=== PATIENT | female | born 1940 | race Caucasian/White ===

== ENCOUNTER 2020-01-09 08:03 | Outpatient (CLI) | payer MEDICARE, OTHER, SELFPAY | END 2020-01-09 08:04 | disposition home or self-care (01) | PROVIDERS: PCP Internal Medicine; Visit Provider Internal Medicine Pulmonary Disease | DX: J44.9 Chronic obstructive pulmonary disease, unspecified (principal); J45.991 Cough variant asthma | CPT/HCPCS: 94060; 94726; 94729; 95012 ==

== ENCOUNTER 2020-04-11 08:31 | Outpatient (CLI) | payer MEDICARE, OTHER, SELFPAY ==
--- NOTE | ~2020-04-11 | CT_ITS ---
EXAMINATION: CT soft tissue neck chest w DATE: 04/11/2020 10:15 INDICATION: Head and neck cancer. TECHNIQUE: Computed tomography (CT) of the neck and chest was performed with 75 mL Omnipaque-350 intr avenous contrast. Automated exposure control and iterative reconstruction technique were employed. Th e dose-length product was 375.05 mGy-cm. COMPARISON: Neck CT 07/28/2018 FINDINGS: NECK CT: There are likely changes of ocular lens replacement surgeries. There is thickening of the mu cosal space of the pharynx and larynx, consistent with changes of radiation therapy. At the right lat eral wall of the nasopharynx, there is a 1.9 x 1.3 cm mass that previously measured 3.0 x 2.5 cm. The re is a 12 x 10 mm lymph node in the right mid internal jugular chain at the posterior aspect of the inferior vena cava that was previously normal in size. There is plaque in the proximal internal carot id arteries with less than 50% stenosis relative to normal distal artery lumen diameters. There is se megha cervical spondylosis. There are implants in the mandible. CHEST CT: There is mild emphysema. There is scarring at the lung apices, right worse than left. There is a right posterior diaphragmatic hernia containing fat. A calcified left lung nodule is consistent with old granulomatous disease. There are a few scattered 2 mm pulmonary nodules. No pleural effusio n. The heart size is normal. There are coronary artery calcifications. No pericardial effusion. There is calcified atherosclerosis of the aorta and many of the other arteries. There is cortical thinning of the kidneys. There is a 1.5 cm cyst in right kidney. There is moderate right glenohumeral joint o steoarthritis with joint effusion. There is thoracolumbar dextroscoliosis and severe spondylosis. IMPRESSION: 1. 1.9 x 1.3 cm mass at the right lateral wall of the nasopharynx with interval improvement, consiste nt with primary malignancy. 2. Worsened mildly enlarged right mid internal jugular chain lymph node, consistent with metastatic d isease. 3. 2 mm pulmonary nodules, which may be granulomatous disease or less likely metastatic disease. Reviewed, dictated and finalized at location E. IMPRESSION: 1. 1.9 x 1.3 cm mass at the right lateral wall of the nasopharynx with interval improvement, consistent with primary malignancy. 2. Worsened mildly enlarged right mid internal jugular chain lymph node, consis tent with metastatic disease. 3. 2 mm pulmonary nodules, which may be granulomatous disease or less likely me tastatic disease.
[2020-04-11 08:44] LABS: Basophils Absolute Auto 0.03 K/mm3 (0.00-0.10); Basophils Percent Auto 0.4 % (0.0-1.0); Eosinophils Absolute Auto 0.19 K/mm3 (0.02-0.50); Eosinophils Percent Auto 2.7 % (1.0-6.0); Hemoglobin 11.2 g/dL (11.7-13.8); Immature Granulocyte Absolute 0.01 K/mm3 (0.00-0.00); Immature Granulocyte Percent A 0.1 % (0.0-0.0); Lymphocytes Percent Auto 24.1 % (18.0-42.0); Mean Corpuscular HGB Conc 33.9 g/dL (32.0-36.0); Mean Corpuscular Hemoglobin 29.8 pg (27.0-31.0); Mean Corpuscular Volume 87.8 fL (78.0-102.0); Mean Platelet Volume 8.6 fl (9.2-11.8); Monocytes Absolute Auto 0.67 K/mm3 (0.10-0.90); Monocytes Percent Auto 9.5 % (2.0-11.0); Neutrophils Absolute Auto 4.5 K/mm3 (1.7-7.2); Neutrophils Percent Auto 63.2 % (50.0-70.0); Platelet Count Result 253 K/mm3 (150-420); Red Blood Count 3.76 M/mm3 (4.20-5.40); Red Cell Distribution Width 13.2 % (11.6-14.4); White Blood Count 7.1 K/mm3 (4.8-10.8)
[2020-04-11 09:45] LABS: Alanine Aminotransferase 35 U/L (14-59); Albumin Level 3.4 g/dL (3.4-5.0); Alkaline Phosphatase 75 U/L (46-116); Anion Gap 12.8 mmol/L (7-16); Aspartate Amino Transferase 34 U/L (15-37); Bilirubin Direct 0.1 mg/dL (0-0.2); Bilirubin,Total 0.3 mg/dL (0.00-1.00); Blood Urea Nitrogen 17 mg/dL (7-18); Calcium 8.8 mg/dL (8.5-10.1); Carbon Dioxide 28 mmol/L (21-32); Chloride 92 mmol/L (98-108); Estimated Glomerular Filt Rate 52; Glucose 82 mg/dL (70-99); Osmolality Calculated 266 mOsm/kg (285-295); Potassium 4.8 mmol/L (3.5-5.1); Sodium 128 mmol/L (136-145); Total Protein 6.8 g/dL (6.4-8.2)
== END 2020-04-11 08:32 | disposition home or self-care (01) ==
LOC: CHSIMG 08:34
PROVIDERS: PCP Internal Medicine; Visit Provider Internal Medicine Hematology & Oncology
DX: C76.0 Malignant neoplasm of head, face and neck (principal)
CPT/HCPCS: 36415; 70491; 71260; 80048; 80076; 85025; Q9965

== ENCOUNTER 2020-04-25 17:38 | Outpatient (CLI) | payer MEDICARE, OTHER, SELFPAY ==
--- NOTE | ~2020-04-25 | XR_ITS ---
EXAMINATION: XR chest 2V EXAM DATE: 04/25/2020 18:02 INDICATION: Dyspnea and shortness of breath. Cough. TECHNIQUE: Frontal and lateral projections of the chest obtained and reviewed. Comparison is made to prior examination from 10/18/2019. FINDINGS: Severe chronic hyperinflation. Coronary artery stent. Right apical capping. No confluent c onsolidation, pneumothorax or pleural effusion suspected. Cardiomediastinal silhouette is normal. Mod erate thoracolumbar scoliosis. There is aortic arteriosclerosis. IMPRESSION: 1. Hyperinflation. 2. No acute cardiopulmonary findings. Reviewed, dictated and finalized at location A.
[2020-04-25 17:57] LABS: Basophils Absolute Auto 0.03 K/mm3 (0.00-0.10); Basophils Percent Auto 0.6 % (0.0-1.0); Eosinophils Absolute Auto 0.21 K/mm3 (0.02-0.50); Eosinophils Percent Auto 3.9 % (1.0-6.0); Hematocrit 31.1 % (35.0-42.0); Hemoglobin 10.7 g/dL (11.7-13.8); Immature Granulocyte Absolute 0.03 K/mm3 (0.00-0.00); Immature Granulocyte Percent A 0.6 % (0.0-0.0); Lymphocytes Absolute Auto 1.68 K/mm3 (1.10-4.50); Mean Corpuscular HGB Conc 34.4 g/dL (32.0-36.0); Mean Corpuscular Hemoglobin 30.1 pg (27.0-31.0); Mean Corpuscular Volume 87.4 fL (78.0-102.0); Mean Platelet Volume 8.7 fl (9.2-11.8); Monocytes Absolute Auto 0.67 K/mm3 (0.10-0.90); Monocytes Percent Auto 12.4 % (2.0-11.0); Neutrophils Absolute Auto 2.8 K/mm3 (1.7-7.2); Neutrophils Percent Auto 51.5 % (50.0-70.0); Platelet Count Result 262 K/mm3 (150-420); Red Blood Count 3.56 M/mm3 (4.20-5.40); Red Cell Distribution Width 13.2 % (11.6-14.4); White Blood Count 5.4 K/mm3 (4.8-10.8)
[2020-04-25 18:15] LABS: BNP 141 pg/mL (0-100)
[2020-04-25 18:16] LABS: D Dimer 0.59 mg/L (0.19-0.50)
[2020-04-25 18:24] LABS: Alanine Aminotransferase 29 U/L (14-59); Albumin Level 3.3 g/dL (3.4-5.0); Alkaline Phosphatase 71 U/L (46-116); Aspartate Amino Transferase 23 U/L (15-37); Bilirubin,Total 0.1 mg/dL (0.00-1.00); Blood Urea Nitrogen 30 mg/dL (7-18); Calcium 8.9 mg/dL (8.5-10.1); Carbon Dioxide 30 mmol/L (21-32); Chloride 93 mmol/L (98-108); Creatine Kinase 62 U/L (26-192); Estimated Glomerular Filt Rate 45; Glucose 98 mg/dL (70-99); Osmolality Calculated 274 mOsm/kg (285-295); Sodium 129 mmol/L (136-145); Total Protein 6.9 g/dL (6.4-8.2)
[2020-04-25 18:33] LABS: Troponin I < 0.02 ng/mL (0.00-0.056)
== END 2020-04-25 17:39 | disposition home or self-care (01) ==
LOC: CHSLAB 17:40
PROVIDERS: PCP Internal Medicine; Visit Provider Internal Medicine
DX: R06.00 Dyspnea, unspecified (principal)
CPT/HCPCS: 36415; 71046; 80053; 82550; 82553; 83880; 84484; 85025; 85380

== ENCOUNTER 2020-04-25 18:46 | Emergency (ER) | payer MEDICARE, OTHER, SELFPAY ==
--- NOTE | ~2020-04-25 | CT_ITS ---
EXAMINATION: CTA chest PE protocol EXAM DATE: 04/25/2020 19:26 INDICATION: Shortness of breath, cough, elevated d-dimer. History of throat cancer and COPD. TECHNIQUE: Spiral CTA of the chest (pulmonary arteries) was performed with 100 cc Omnipaque 350 intr avenous contrast injection. Images were acquired during the pulmonary arterial phase. Coronal maxi mum intensity projection 3D-reconstructions were created by the technologist on dedicated workstation . Axial, coronal and sagittal reformatted images were reviewed. The dose-length product (DLP) for t his examination was 142.50 mGy-cm. The exposure was tailored according to patient size (auto mA exp osure control), and iterative reconstruction (ASIR) was used as additional dose reduction technique. Comparison is made to prior examination from 04/11/2020. FINDINGS: Pulmonary arteries are well opacified and without intraluminal filling defects. No thora cic aortic dissection. Several scattered punctate granulomas. No suspicious pulmonary nodules. Ther e are no pleural or pericardial effusions. Tracheobronchial tree is patent. There is no mediastin al, hilar or axillary lymphadenopathy. There is no pneumothorax. Heart normal in size. There ar e likely coronary arterial stent or stents. Correlate with prior cardiac history. Upper abdomen is u nremarkable. There is thoracic spondylosis without osteoblastic or osteolytic lesions identified. IMPRESSION: 1. No pulmonary emboli or acute findings. 2. Emphysema and hyperinflation. 3. Bronchiectasis. Reviewed, dictated and finalized at location A.
[2020-04-25 19:00] VITALS: BP 152/73; PULSE 86; RESP 18; TEMP 36.4; O2SAT 99
--- NOTE | 2020-04-25 19:26 | ED.GENADULT ---
HPI - General Adult General Chief complaint: Recheck/Abnormal Lab/Rx Stated complaint: sent from [facility] for bad labs Source: patient History of Present Illness HPI narrative: Charisma is a 79F with a PMH of paroxysmal afib, CAD, HLD, HTN, osteoporosis, COPD and tonsil cancer that was referred to clinic by her PCP for an elevated D-dimer. She has had SOB since 04/12 when she was in the hospital getting her CT done. 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 No fevers, no chills, no N/V/D or chest pain. Related Data Home Medications Medication Instructions Recorded Confirmed aspirin 81 mg PO DAILY 10/18/19 04/25/20 atorvastatin 20 mg PO DAILY 10/18/19 04/25/20 clopidogrel [Plavix] 75 mg PO DAILY 10/18/19 04/25/20 lisinopril 10 mg PO DAILY 10/18/19 04/25/20 metoprolol tartrate 37.5 mg PO BID 10/18/19 04/25/20 montelukast 10 mg PO HS 10/18/19 04/25/20 multivit with min-folic acid See Rx Instructions .ROUTE .COMPLEX 10/18/19 04/25/20 [Adult One Daily Multivitamin] omeprazole 20 mg PO BID 10/18/19 04/25/20 tiotropium bromide [Spiriva with 1 cap INHALATION DAILY 10/18/19 04/25/20 HandiHaler] budesonide-formoterol [Symbicort] 2 puff INHALATION Q12H 04/25/20 04/25/20 Allergies Allergy/AdvReac Type Severity Reaction Status Date / Time Penicillins Allergy Hives Verified 10/18/19 19:35 Sulfa (Sulfonamide Allergy Hives Verified 10/18/19 19:35 Antibiotics) Review of Systems Constitutional: Constitutional: Denies chills and Denies fever(s) Eyes: Eyes: Reports no additional eye complaints ENT: Reports system reviewed and no additional complaints, except as documented Cardiovascular: Cardiovascular: Denies chest pain and Denies radiating jaw, neck or arm pain Respiratory: Respiratory: Reports as per HPI Gastrointestinal: Gastrointestinal: Reports no additional gastrointestinal complaints Genitourinary: Genitourinary: Reports no additional female genitourinary complaints Musculoskeletal: Musculoskeletal: Reports no additional musculoskeletal complaints Integumentary/Breasts: Skin/Breast: Reports system reviewed and no additional complaints, except as docu Neurologic: Reports system reviewed and no additional complaints, except as documented Psychiatric: Psychiatric: Reports no additional psychiatric complaints Endocrine: Endocrine: Reports no additional endocrine complaints Hematologic/Lymphatic: Hematologic/Lymphatic: Reports no additional hematologic/lymphatic complaints Allergic/Immunologic: Allergic/Immunologic: Reports no additional allergic/immunologic complaints PMFSH Past Medical History Medical History DVT (deep venous thrombosis) Surgical History Surgical History H/O bilateral oophorectomy History of appendectomy History of hysterectomy History of stress incontinence procedure using tension free vaginal tape Stented coronary artery Social History Social History Smoking status: Former smoker Alcohol intake: former Substance use: never Exam Const: General: no acute distress and alert Orientation/consciousness: patient oriented x3 Limitations: No altered mental status HENMT: Head: normal to inspection Eyes: Conjunctivae: conjunctivae normal Pupils: Equal, round and reactive pupils present Neck: Neck: normal visual inspection and no lymphadenopathy Resp: Effort & Inspection: normal respiratory effort Auscultation: clear to auscultation bilaterally and no wheezes Other: prolonged expiratory phase Cardio: Rhythm: regular rhythm GI: Other: bowel sounds present Course Course Emergency Course: Charisma was seen and evaluated. Orderd CTA as below. EXAMINATION: CTA chest PE protocol EXAM DATE: 04/25/2020 19:26 INDICATION: Shortness of breath, cough, elevated d-dimer. History
[2020-04-25] MEDS: methylPREDNISolone SOD SUCC 125 MG VIAL IV PUSH (19:48)
[2020-04-25 20:54] VITALS: BP 140/67; PULSE 80; RESP 18; TEMP 36.2; O2SAT 98
== END 2020-04-25 20:55 | disposition home or self-care (01) ==
PROVIDERS: Emergency Provider Family Medicine; PCP Internal Medicine
DX: J44.9 Chronic obstructive pulmonary disease, unspecified (principal); I25.10 Atherosclerotic heart disease of native coronary artery without angina pectoris; I10 Essential (primary) hypertension; M81.0 Age-related osteoporosis without current pathological fracture; I48.0 Paroxysmal atrial fibrillation; C09.9 Malignant neoplasm of tonsil, unspecified
CPT/HCPCS: 36415; 71046; 71275; 80053; 82550; 82553; 83880; 84484; 85025; 85380; 96365; 96375; 99283; 99284; J0456; J2930; Q9965

== ENCOUNTER 2020-05-10 15:36 | Outpatient (CLI) | payer MEDICARE, OTHER, SELFPAY ==
[2020-05-10 15:55] LABS: Base Excess ABG -1.4 mmol/L (0-2); HCO3 ABG 21.5 mmol/L (23-29); Oxygen Content ABG 16.2 %vol (16.0-22.0); Oxygen Saturation ABG 97.5 % (95-97); Oxyhemoglobin 97.1 % (94-100); PCO2 ABG 30.5 mmHg (35-45); PO2 ABG 92.2 mmHg (75-85); Total Hemoglobin 11.8 g/dL; pH ABG 7.47 (7.35-7.45)
--- NOTE | 2020-05-10 15:55 | ECG_ITS ---
Measurements Intervals [place] Rate: 75 P: 83 ME: 155 QRS: 75 QRSD: 90 T: 75 QT: 374 QTc: 418 Interpretive Statements SINUS RHYTHM BORDERLINE R WAVE PROGRESSION, ANTERIOR LEADS BASELINE ARTIFACT- I, II, AVR, AVL,A VF, V1-V3 BORDERLINE ECG Electronically Signed On 05-10-2020 17:28:34 CDT by Gregg Hernandez D.O.
[2020-05-10 16:11] LABS: Device ROOM AIR; Site Drawn RIGHT BRACHIAL
== END 2020-05-10 15:37 | disposition home or self-care (01) ==
LOC: CHSLAB 15:40
PROVIDERS: PCP Internal Medicine; Visit Provider Specialist
DX: R06.02 Shortness of breath (principal)
CPT/HCPCS: 36600; 82805; 93005

== ENCOUNTER 2020-05-17 12:15 | Outpatient (CLI) | payer MEDICARE, OTHER, SELFPAY | END 2020-05-17 12:16 | disposition home or self-care (01) | LOC: CHSIMG 12:16 | PROVIDERS: PCP Internal Medicine; Visit Provider Specialist | DX: R06.02 Shortness of breath (principal) | CPT/HCPCS: 93306 ==

== ENCOUNTER 2020-08-08 07:24 | Outpatient (CLI) | payer MEDICARE, OTHER, SELFPAY ==
--- NOTE | ~2020-08-08 | CT_ITS ---
EXAMINATION: CT soft tissue neck chest w EXAM DATE: 08/08/2020 08:25 INDICATION: Head and neck cancer, malignant tonsil cancer. TECHNIQUE: Spiral CT of the neck and chest was performed following intravenous injection of 75 mL Omn ipaque 350. Axial, coronal and sagittal images of the neck were reviewed. Axial, coronal and sagitt al images of the chest were reviewed. Coronal maximum intensity pixel images of chest reviewed. The dose-length product (DLP) for this examination was 405.45 mGy-cm. The exposure was tailored accordi ng to patient size (auto mA exposure control), and iterative reconstruction (ASIR) was used as additi onal dose reduction technique. There is no prior study for comparison. FINDINGS: NECK: Loss of normal fat planes surrounding the right carotid artery, thickening of the mucosal space of the pharynx and larynx, appearance most consistent with radiation related change, correlate with history. Again there is asymmetry of the nasopharyngeal mucosa with the right being more prominent th an the left. Could be treated cancer. Appearance does not appear significantly changed compared to pr ior study. Compared to prior study, some of the radiation related fibrosis has likely caused interval narrowing of the right internal jugular vein, without thrombosis. The thyroid gland is unremarkable. The subm andibular and parotid glands are symmetric. There is no cervical lymphadenopathy. There is advance d cervical spondylosis. CHEST: There is moderate emphysema and hyperinflation. Mild bronchiectasis. Biapical scarring is unch anged. There are no pleural or pericardial effusions. Tracheobronchial tree is patent. There is no mediastinal, hilar or axillary lymphadenopathy. There is no pneumothorax. Heart normal in size . Upper abdomen is unremarkable. There is thoracic spondylosis without osteoblastic or osteolytic lesions identified. IMPRESSION: 1. Stable right nasopharyngeal soft tissue prominence probably treated malignancy. 2. Findings consistent with radiation related change, with some interval progression of right international trade specialist al jugular vein narrowing from fibrosis. 3. Emphysema, hyperinflation, bronchiectasis. Reviewed, dictated and finalized at location A. IMPRESSION: 1. Stable right nasopharyngeal soft tissue prominence probably treated maligna ncy. 2. Findings consistent with radiation related change, with some interval progr ession of right internal jugular vein narrowing from fibrosis. 3. Emphysema, hyperinflation, bronchiectasis.
[2020-08-08 07:46] LABS: Basophils Absolute Auto 0.04 K/mm3 (0.00-0.10); Basophils Percent Auto 0.7 % (0.0-1.0); Eosinophils Absolute Auto 0.18 K/mm3 (0.02-0.50); Eosinophils Percent Auto 3.2 % (1.0-6.0); Hematocrit 33.7 % (35.0-42.0); Hemoglobin 11.2 g/dL (11.7-13.8); Immature Granulocyte Absolute 0.03 K/mm3 (0.00-0.00); Immature Granulocyte Percent A 0.5 % (0.0-0.0); Lymphocytes Absolute Auto 1.26 K/mm3 (1.10-4.50); Lymphocytes Percent Auto 22.2 % (18.0-42.0); Mean Corpuscular HGB Conc 33.2 g/dL (32.0-36.0); Mean Corpuscular Hemoglobin 30.2 pg (27.0-31.0); Mean Corpuscular Volume 90.8 fL (78.0-102.0); Monocytes Absolute Auto 0.31 K/mm3 (0.10-0.90); Monocytes Percent Auto 5.5 % (2.0-11.0); Neutrophils Absolute Auto 3.9 K/mm3 (1.7-7.2); Neutrophils Percent Auto 67.9 % (50.0-70.0); Platelet Count Result 265 K/mm3 (150-420); Red Blood Count 3.71 M/mm3 (4.20-5.40); Red Cell Distribution Width 12.7 % (11.6-14.4); White Blood Count 5.7 K/mm3 (4.8-10.8)
[2020-08-08 08:04] LABS: Estimated Glomerular Filt Rate 39
[2020-08-08 08:18] LABS: Alanine Aminotransferase 23 U/L (14-59); Albumin Level 3.7 g/dL (3.4-5.0); Alkaline Phosphatase 81 U/L (46-116); Anion Gap 7 mmol/L (8-16); Aspartate Amino Transferase 21 U/L (15-37); Bilirubin,Total 0.4 mg/dL (0.00-1.00); Blood Urea Nitrogen 18 mg/dL (7-18); Calcium 9.6 mg/dL (8.5-10.1); Carbon Dioxide 28 mmol/L (21-32); Chloride 94 mmol/L (98-108); Glucose 151 mg/dL (70-99); Osmolality Calculated 272 mOsm/kg (285-295); Potassium 4.2 mmol/L (3.5-5.1); Sodium 129 mmol/L (136-145); Total Protein 7.4 g/dL (6.4-8.2)
[2020-08-08 08:23] LABS: Thyroid Stimulating Hormone Reflex 1.66 u/IU/mL (0.36-3.74)
== END 2020-08-08 07:25 | disposition home or self-care (01) ==
LOC: CHSIMG 07:27
PROVIDERS: PCP Internal Medicine; Visit Provider Internal Medicine Hematology & Oncology
DX: C76.0 Malignant neoplasm of head, face and neck (principal); C09.9 Malignant neoplasm of tonsil, unspecified; R53.83 Other fatigue
CPT/HCPCS: 36415; 70491; 71260; 80053; 84443; 85025; Q9965

== ENCOUNTER 2021-02-14 10:24 | Outpatient (CLI) | payer MEDICARE, OTHER, SELFPAY ==
--- NOTE | ~2021-02-14 | XR_ITS ---
XR chest 2V 02/14/2021 11:10 Indication: Dyspnea. Shortness of breath with exertion. Chest pain. Procedure: 2 view chest Comparison: Comparison to multiple prior studies sequentially, with oldest reviewed study dated 01/17. Findings: Heart size normal. There is atherosclerosis of the aorta. No focal air space disease, pulmo nary edema, pleural effusion or suspected pneumothorax. The lungs are hyperinflated which is consiste nt with, but not diagnostic of chronic obstructive pulmonary disease. There are coronary artery stent s. There is chronic apical pleural thickening/scarring. There is scoliosis at the thoracolumbar junct ion. Impression: 1: No acute cardiopulmonary disease. Reviewed, dictated and finalized at location A. Impression: 1: No acute cardiopulmonary disease.
--- NOTE | ~2021-02-14 | CT_ITS ---
EXAMINATION: CTA chest PE protocol DATE: 02/14/2021 12:24 INDICATION: Shortness of breath. Dyspnea with exertion. Generalized chest pain. Positive d-dimer. TECHNIQUE: Computed tomography angiography (CTA) of the chest was performed with 100 mL Omnipaque-350 intravenous contrast timed to evaluate the pulmonary arteries. Coronal maximum intensity projection 3D-reconstructions were created by the technologist. Automated exposure control and iterative reconst ruction technique were employed. Exam dose: 145.58 mGy-cm total exam DLP. COMPARISON: 02/14/2021 PA and lateral chest 04/25/2020 CT pulmonary scan FINDINGS: There is diagnostic contrast enhancement of the pulmonary arteries and no evidence of pulmo nary embolism. No thoracic aortic aneurysm or dissection. There is extensive thoracic aortic and great vessel and coronary artery calcification. Heart size is within normal limits. No hilar or mediastinal mass lesion or lymphadenopathy. No pericardial or pleural effusion. Emphysematous changes are noted throughout the lungs. There is bilateral apical scarring, right great er than left. No pulmonary infiltrate or consolidation. No adrenal mass lesion is evident. Diffuse osteopenia. There are degenerative changes of the lower cervical spine and the thoracic and l umbar spine. IMPRESSION: No evidence of pulmonary embolism Emphysema Reviewed, dictated and finalized at Location A. Reviewed, dictated and finalized at location B.
[2021-02-14 10:37] LABS: Basophils Absolute Auto 0.03 K/mm3 (0.00-0.10); Basophils Percent Auto 0.4 % (0.0-1.0); Eosinophils Absolute Auto 0.09 K/mm3 (0.02-0.50); Eosinophils Percent Auto 1.3 % (1.0-6.0); Hematocrit 37.1 % (35.0-42.0); Hemoglobin 12.3 g/dL (11.7-13.8); Immature Granulocyte Absolute 0.02 K/mm3 (0.00-0.00); Immature Granulocyte Percent A 0.3 % (0.0-0.0); Lymphocytes Absolute Auto 0.98 K/mm3 (1.10-4.50); Lymphocytes Percent Auto 13.6 % (18.0-42.0); Mean Corpuscular HGB Conc 33.2 g/dL (32.0-36.0); Mean Corpuscular Hemoglobin 29.9 pg (27.0-31.0); Mean Platelet Volume 9.4 fl (9.2-11.8); Monocytes Absolute Auto 0.63 K/mm3 (0.10-0.90); Monocytes Percent Auto 8.8 % (2.0-11.0); Neutrophils Absolute Auto 5.4 K/mm3 (1.7-7.2); Neutrophils Percent Auto 75.6 % (50.0-70.0); Platelet Count Result 269 K/mm3 (150-420); Red Blood Count 4.12 M/mm3 (4.20-5.40); Red Cell Distribution Width 13.4 % (11.6-14.4); White Blood Count 7.2 K/mm3 (4.8-10.8)
--- NOTE | 2021-02-14 10:37 | ECG_ITS ---
Measurements Intervals [place] Rate: 83 P: 85 DC: 151 QRS: 73 QRSD: 81 T: 72 QT: 367 QTc: 433 Interpretive Statements SINUS RHYTHM FREQUENT VENTRICULAR PREMATURE COMPLEXES CANNOT RULE OUT SEPTAL INFARCT, AGE INDETERMINATE BASELINE ARTIFACT- I, II, III, AVR, AVL, AVF ABNORMAL ECG Electronically Signed On 02-14-2021 11:22:18 CDT by Gregg Hernandez D.O.
[2021-02-14 10:58] LABS: BNP 187 pg/mL (0-100)
[2021-02-14 11:13] LABS: Alanine Aminotransferase 19 U/L (14-59); Albumin Level 3.6 g/dL (3.4-5.0); Alkaline Phosphatase 72 U/L (46-116); Anion Gap 9 mmol/L (8-16); Aspartate Amino Transferase 23 U/L (15-37); Bilirubin,Total 0.5 mg/dL (0.00-1.00); Blood Urea Nitrogen 17 mg/dL (7-18); Calcium 9.5 mg/dL (8.5-10.1); Carbon Dioxide 28 mmol/L (21-32); Chloride 98 mmol/L (98-108); Creatine Kinase 56 U/L (26-192); Estimated Glomerular Filt Rate 38; Glucose 108 mg/dL (70-99); Osmolality Calculated 282 mOsm/kg (285-295); Potassium 3.6 mmol/L (3.5-5.1); Sodium 135 mmol/L (136-145); Total Protein 7.7 g/dL (6.4-8.2); Troponin I 12.1 ng/L (0.00-60.4)
== END 2021-02-14 10:25 | disposition home or self-care (01) ==
PROVIDERS: PCP Internal Medicine; Visit Provider Internal Medicine
DX: R06.00 Dyspnea, unspecified (principal); I25.10 Atherosclerotic heart disease of native coronary artery without angina pectoris; Z85.21 Personal history of malignant neoplasm of larynx; Z85.89 Personal history of malignant neoplasm of other organs and systems
CPT/HCPCS: 36415; 71046; 71275; 80053; 82550; 82553; 83880; 84484; 85025; 85380; 93005; Q9967

== ENCOUNTER 2021-06-10 09:12 | Outpatient (CLI) | payer MEDICARE, OTHER, SELFPAY ==
--- NOTE | ~2021-06-10 | CT_ITS ---
EXAMINATION: CT soft tissue neck w con EXAM DATE: 06/10/2021 10:25 INDICATION: Head and neck cancer. Swelling in neck found at doctor's ananda, tender to touch. TECHNIQUE: Spiral CT of the neck was performed following intravenous injection of 75 mL Omnipaque 350 . Axial, coronal and sagittal images were reviewed. The dose-length product (DLP) for this examinat ion was 138.75 mGy-cm. The exposure was tailored according to patient size (auto mA exposure control ), and iterative reconstruction (ASIR) was used as additional dose reduction technique. Comparison is made to prior examination from 08/08/2020. FINDINGS: Appearance to the nasopharyngeal and oropharyngeal mucosa, which appears asymmetrically thi ckened more on the right, and with indistinct parapharyngeal fat planes appears not significantly rafael nged. The right internal jugular vein has significantly decreased in caliber compared to previous exa mination, probably continued radiation related scarring, but the left is widely patent. Indistinct fa t plane surrounding the carotid and internal jugular vein. The thyroid gland is unremarkable. The submandibular and parotid glands are symmetric. There is n o cervical lymphadenopathy. There are no masses identified. The superior mediastinum is unremarka ble. The airway is unremarkable. Mild carotid bulb arterial sclerosis without stenosis. Patient has had bilateral ocular lens surgery. Visualized sinuses and mastoid air cells are well aerated. Bi apical scarring and emphysema. Severe cervical arthropathy and disc disease. IMPRESSION: 1. Thickened nasopharyngeal and oropharyngeal mucosa with indistinct fat planes and radiation fibros is. 2. Nearly collapsed right internal jugular vein likely continued radiation related change. No thromb us. 3. Emphysema, apical scarring. Reviewed, dictated and finalized at location A. IMPRESSION: 1. Thickened nasopharyngeal and oropharyngeal mucosa with indistinct fat plane s and radiation fibrosis. 2. Nearly collapsed right internal jugular vein likely continued radiation rel ated change. No thrombus. 3. Emphysema, apical scarring.
[2021-06-10 09:41] LABS: Estimated Glomerular Filt Rate 50
== END 2021-06-10 09:13 | disposition home or self-care (01) ==
LOC: CHSIMG 09:13
PROVIDERS: PCP Internal Medicine; Visit Provider Internal Medicine Hematology & Oncology
DX: C76.0 Malignant neoplasm of head, face and neck (principal)
CPT/HCPCS: 70491; Q9967

== ENCOUNTER 2021-08-13 13:17 | Outpatient (CLI) | payer MEDICARE, OTHER, SELFPAY ==
--- NOTE | ~2021-08-13 | US_ITS ---
EXAMINATION: US carotid duplex BI DATE: 08/13/2021 13:46 INDICATION: Carotid bruit TECHNIQUE: Grayscale, color Doppler, and pulsed Doppler images of the cervical carotid arteries were obtained. The degree of vessel stenosis is placed in one of the following categories: normal, <50%, 5 0-69%, >=70% but less than near-occlusion, near-occlusion, or total occlusion. Note that percent sten osis relative to normal distal artery lumen diameter is indirectly measured from velocity measurement s as described by Ministerio, et al. Radiology 2003; 229:340-346. Notes: Normal: Peak systolic velocity <125 centimeters/sec and no plaque <50%. Peak systolic velocity <125 ( EDV <40; ICA/CCA PSV ratio <2.0; used these factors only a tandem lesions or low cardiac output or co ntralateral disease) 50-69 %: PSV 125-230 (EDV 40-100; ratio 2-4) >= 70% but less than near occlusion: PSV greater than 230 (EDV > 100; ratio> 4.0) Near Occlusion: PSV that is variable; markedly narrowed lumen Occlusion: Absent flow on color/spectral Doppler and no lumen on broderick scale. COMPARISON: None. FINDINGS: RIGHT: The right common carotid artery (CCA) peak systolic velocity (PSV) is 85 cm/s. The right internal car otid artery (ICA) PSV is 77 cm/s. The right ICA end-diastolic velocity (EDV) is 21 cm/s. The right IC A/CCA PSV ratio is 0.9. The external carotid artery (ECA) PSV is 63 cm/s. There is antegrade flow in the right vertebral artery. LEFT: The left CCA PSV is 79 cm/s. The left ICA PSV is 91 cm/s. The left ICA EDV is 15 cm/s. The left ICA/C CA PSV ratio is 1.1. The ECA PSV is 81 cm/s. There is to and fro flow in the left vertebral artery. IMPRESSION: 1. Less than 50% stenosis in the right internal carotid artery by sonographic criteria. 2. Less than 50% stenosis in the left internal carotid artery by sonographic criteria. 3: To-and-fro flow in the left vertebral artery. Reviewed, dictated and finalized at location A. IMPRESSION: 1. Less than 50% stenosis in the right internal carotid artery by sonographic c riteria. 2. Less than 50% stenosis in the left internal carotid artery by sonographic cr iteria. 3: To-and-fro flow in the left vertebral artery.
== END 2021-08-13 13:18 | disposition home or self-care (01) ==
LOC: CHSIMG 13:22
PROVIDERS: PCP Internal Medicine; Visit Provider Specialist
DX: I77.9 Disorder of arteries and arterioles, unspecified (principal); Z98.890 Other specified postprocedural states; R09.89 Other specified symptoms and signs involving the circulatory and respiratory systems
CPT/HCPCS: 93880

== ENCOUNTER 2022-12-30 09:46 | Emergency (ER) | payer MEDICARE, OTHER, SELFPAY ==
[2022-12-30 09:49] VITALS: BP 115/85; PULSE 103; RESP 18; O2SAT 98
[2022-12-30 09:50] VITALS: BP 115/85; PULSE 84; RESP 16; TEMP 36.6; O2SAT 99
--- NOTE | 2022-12-30 10:08 | ED.URI ---
HPI - URI/Sore Throat General Chief Complaint: Upper Respiratory Infection Stated Complaint: sore throat Time Seen by Provider: 12/30/22 10:07 Source: patient and RN notes reviewed Mode of arrival: ambulatory Limitations: no limitations History of Present Illness HPI Narrative: Patient began having sore throat yesterday. One of her grandchildren has tested positive for strep and had been at her house. She denies any fever chills. She denies any nausea vomiting. MD elicited complaint: sore throat Onset (ago): day(s) (1 yesterday) Consistency: constant Severity: moderate Exacerbating factors: swallowing Relieving factors: nothing Context: sick contacts ( granddaughter with strep) Associated symptoms: denies other symptoms Treatments prior to arrival: none Related Data Home Medications Medication Instructions Recorded Confirmed aspirin 81 mg chewable tablet 81 mg PO DAILY 10/18/19 12/30/22 atorvastatin 20 mg tablet 20 mg PO DAILY 10/18/19 12/30/22 clopidogrel 75 mg tablet (Plavix) 75 mg PO DAILY 10/18/19 12/30/22 lisinopril 10 mg tablet 10 mg PO DAILY 10/18/19 12/30/22 metoprolol tartrate 25 mg tablet 37.5 mg PO BID 10/18/19 12/30/22 montelukast 10 mg tablet 10 mg PO HS 10/18/19 12/30/22 multivitamin with minerals-folic See Rx Instructions .Route .COMPLEX 10/18/19 12/30/22 acid 0.4 mg tablet (Adult One Daily Multivitamin) omeprazole 20 mg tablet,delayed 20 mg PO BID 10/18/19 12/30/22 release Allergies Allergy/AdvReac Type Severity Reaction Status Date / Time Penicillins Allergy Hives Verified 12/30/22 09:57 Sulfa (Sulfonamide Allergy Hives Verified 12/30/22 09:57 Antibiotics) Review of Systems Review of Systems: All systems reviewed & are unremarkable except as noted in HPI and below PMFSH Past Medical History Medical History (Updated 12/30/22 @ 11:33 by Primo Woods MD) Coronary artery disease DVT (deep venous thrombosis) Surgical History Surgical History H/O bilateral oophorectomy History of appendectomy History of hysterectomy History of stress incontinence procedure using tension free vaginal tape Stented coronary artery Social History Social History Smoking status: Former smoker Alcohol intake: former Substance use: never Exam Const: General: healthy appearing, no acute distress and alert Nutritional Appearance: well nourished and thin Orientation/consciousness: patient oriented x3 Limitations: no limitations HENMT: Head: normal to inspection Ears: external ears normal Face/Nose/Sinus: Normal external nose present Face and sinus: normal facial exam Mouth: Yes moist mucous membranes Throat: uvula midline and posterior oropharynx abnormal edema and erythema Eyes: Conjunctivae: conjunctivae normal Pupils: Equal, round and reactive pupils present EOM: EOMs intact bilaterally Neck: Neck: lymphadenopathy bilateral anterior cervical soft, mobile and tender Resp: Effort & Inspection: normal respiratory effort Auscultation: clear to auscultation bilaterally Cardio: Rate: regular rate Rhythm: abnormal rhythm with ectopic beats Heart sounds: Murmur heart sound present systolic holo, late, soft, III/ and at the left sternal border GI: GI Palp: Yes Soft to palpation and No Tenderness to palpation present (GI) Auscultation: normal bowel sounds Back/Spine/Pelvis: Cervical Spine: cervical ROM normal Thoracic/Lumbar Spine: thoraco-lumbar ROM normal Skin: General skin exam: normal color Rashes: no rashes Neuro: General: patient oriented x3, moves all extremities, no focal motor deficits and CN's II-XI intact bilaterally Speech: normal speech Gait exam (Neuro): Normal gait present Extrem: General: normal to inspection and no clubbing, cyanosis or edema Psych: Mental Status: mental status grossly normal Affect: normal affect Attitude: cooperative Course V
[2022-12-30 10:34] LABS: Influenza A QL RT-PCR Negative (Negative); Influenza B QL RT-PCR Negative (Negative); SARS-CoV-2 RNA PCR Negative (Negative)
[2022-12-30 10:45] LABS: Strep Group A RT-PCR Not Detected (Negative)
[2022-12-30 11:00] VITALS: BP 126/84; PULSE 69; RESP 18; TEMP 36.7; O2SAT 98
== END 2022-12-30 11:05 | disposition home or self-care (01) ==
PROVIDERS: Emergency Provider Emergency Medicine; PCP Internal Medicine
DX: J02.9 Acute pharyngitis, unspecified (principal); I25.10 Atherosclerotic heart disease of native coronary artery without angina pectoris; Z86.718 Personal history of other venous thrombosis and embolism; Z79.82 Long term (current) use of aspirin; Z87.891 Personal history of nicotine dependence; Z20.822 Contact with and (suspected) exposure to COVID-19
CPT/HCPCS: 87636; 87651; 99283

== ENCOUNTER 2023-06-15 14:16 | Observation (INO) | payer MEDICARE, OTHER, SELFPAY ==
[2023-06-15] VITALS (17 sets, daily range): BP systolic 153–191; BP diastolic 92–102; PULSE 81–96; RESP 13–34; TEMP 36.5–37.1; O2SAT 96–99; BMI 12.4
--- NOTE | ~2023-06-15 | NM_ITS ---
EXAMINATION: NM pulmonary perfusion DATE: 06/16/2023 12:07 INDICATION: Elevated d-dimer. Dyspnea. TECHNIQUE: 5.0 mCi Tc-99m MAA by intravenous route. Scintigraphic images of the chest were obtained. COMPARISON: Chest CT dated 06/15/2023 FINDINGS: Heterogeneous pattern of radiotracer activity throughout both lungs with numerous small perfusion def ects scattered throughout both lungs. Moderate-sized perfusion defect at the inferior segment of the lingula without corresponding focal lung disease on prior CT. There is diffuse mild to moderate emphy sema throughout both lungs on the prior CT. IMPRESSION: 1. Nondiagnostic (low or intermediate probability for pulmonary embolism). Reviewed, dictated and finalized at location A.
--- NOTE | ~2023-06-15 | CT_ITS ---
CT Scan of the Chest without Contrast: Clinical Indication: Dyspnea, COPD Technique: Contiguous sections were acquired throughout the chest without intravenous contrast. Dose reduction technique was used on this scan by utilizing automated exposure control and iterative recon struction technique. The dose-length product (DLP) was 138.40 mGy-cm. COMPARISON: 02/14/2021 Findings: There is no evidence of any significant mediastinal, hilar or axillary lymphadenopathy. There are ext ensive atherosclerotic calcifications of the aorta and coronary arteries. There is no evidence of pleural or pericardial effusion. There is biapical scarring with mild to moderate emphysema. There is probable focal scarring in the a nteromedial right upper lobe, stable from prior exam. There is minimal patchy groundglass opacity in the left lower lobe, nonspecific. Images through the upper abdomen reveal no abnormalities. Impression: Minimal patchy groundglass opacity in the inferior left lower lobe, nonspecific. Pneumonia is not exc luded. Mild to moderate emphysema with stable areas of scarring, as detailed above. Reviewed, dictated and finalized at location . Impression: Minimal patchy groundglass opacity in the inferior left lower lobe, nonspecific . Pneumonia is not excluded. Mild to moderate emphysema with stable areas of scarring, as detailed above.
--- NOTE | ~2023-06-15 | XR_ITS ---
Portable chest x-ray Comparison: 02/14/2021 Clinical History: Dyspnea Findings: Probable COPD pattern of the lungs. No consolidation, pleural effusion, or pneumothorax. Cardiomediastinal silhouette is stable. Bones and soft tissues are unremarkable. Impression: COPD. Reviewed, dictated and finalized at location . Impression: COPD.
--- NOTE | 2023-06-15 14:41 | ECG_ITS ---
Measurements Intervals [place] Rate: 81 P: 81 IN: 138 QRS: 64 QRSD: 84 T: 60 QT: 392 QTc: 457 Interpretive Statements SINUS RHYTHM VOLTAGE CRITERIA FOR LVH ANTEROSEPTAL INFARCT, AGE INDETERMINATE BASELINE ARTIFACT- I, III, AVL, V1, V4-V6 ABNORMAL ECG COMPARED TO ECG 02/14/2021 10:48:15 LEFT VENTRICULAR HYPERTROPHY NOW PRESENT Electronically Signed On 06-15-2023 15:15:49 CDT by Gregg Hernandez D.O.
--- NOTE | 2023-06-15 14:44 | ED.GENADULT ---
HPI - General Adult General Chief complaint: Weakness Stated complaint: SOB Time Seen by Provider: 06/15/23 14:32 History of Present Illness HPI narrative: The patient is an 82-year-old woman with a history of coronary artery disease, prior CT, status post coronary stents, GERD, mild COPD but not on oxygen or inhalers, hypertension, hyperlipidemia, atrial fibrillation. On aspirin and clopidogrel. 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 She weighs only 33 kg. For the last 2-3 days, the patient has felt more weak and tired than usual. She has had increased dyspnea, both at rest but especially with exertion when she ambulates with a cane. She fell 3 days ago but had a superficial abrasion on her right elbow but no other injuries. She denies cough or chest pain or abdominal pain. Does complain of headache around her temples. No fevers or chills or diaphoresis. No urinary symptoms such as urgency or frequency. No abdominal pain. No nausea vomiting. No diarrhea or constipation. No hematochezia or melena. Related Data Home Medications Medication Instructions Recorded Confirmed aspirin 81 mg chewable tablet 81 mg PO DAILY 10/18/19 12/30/22 atorvastatin 20 mg tablet 20 mg PO DAILY 10/18/19 12/30/22 clopidogrel 75 mg tablet (Plavix) 75 mg PO DAILY 10/18/19 12/30/22 lisinopril 10 mg tablet 10 mg PO DAILY 10/18/19 12/30/22 metoprolol tartrate 25 mg tablet 37.5 mg PO BID 10/18/19 12/30/22 montelukast 10 mg tablet 10 mg PO HS 10/18/19 12/30/22 multivitamin with minerals-folic See Rx Instructions .Route .COMPLEX 10/18/19 12/30/22 acid 0.4 mg tablet (Adult One Daily Multivitamin) omeprazole 20 mg tablet,delayed 20 mg PO BID 10/18/19 12/30/22 release Allergies Allergy/AdvReac Type Severity Reaction Status Date / Time Penicillins Allergy Hives Verified 12/30/22 09:57 Sulfa (Sulfonamide Allergy Hives Verified 12/30/22 09:57 Antibiotics) Review of Systems Review of Systems: All systems reviewed & are unremarkable except as noted in HPI and below Constitutional: Constitutional: Denies chills, Denies excessive sweating, Reports fatigue, Denies fever(s), Reports headache(s) and Reports weakness Eyes: Eyes: Denies change in vision and Denies photophobia ENT: Denies dysphagia, Denies dizziness, Denies lip swelling, Denies nasal congestion, Denies sore throat and Denies tongue swelling Cardiovascular: Cardiovascular: Denies chest pain, Denies syncope, Denies rapid heart rate and Denies dyspnea Respiratory: Respiratory: Denies cough, Reports dyspnea and Denies wheezing Gastrointestinal: Gastrointestinal: Denies abdominal pain, Denies constipation, Denies dysphagia, Denies diarrhea, Denies nausea and Denies vomiting Genitourinary: Genitourinary: Denies hematuria, Denies urinary frequency, Denies dysuria and Denies urinary urgency Musculoskeletal: Musculoskeletal: Denies back pain, Denies myalgias, Denies arthralgias, Denies joint swelling and Denies numbness Integumentary/Breasts: Skin/Breast: Denies pruritus, Denies erythema and Denies rash Neurologic: Denies confusion, Denies dizziness, Denies syncope, Denies focal weakness and Denies numbness Psychiatric: Psychiatric: Denies anxiety and Denies confusion Endocrine: Endocrine: Denies excessive sweating Hematologic/Lymphatic: Hematologic/Lymphatic: Denies easy bleeding and Denies easy bruising Allergic/Immunologic: Allergic/Immunologic: Denies lip swelling, Denies tongue swelling and Denies wheezing PMFSH Past Medical History Medical History (Updated 06/15/23 @ 17:59 by Elias Oneal MD) Coronary artery disease DVT (deep venous thrombosis) Surgical History Surgical History H/O bilateral oophorectomy History of appendectomy History of hysterectomy History of stress incontinence procedure using tension free vaginal tape Stented coronary artery Social History So
[2023-06-15 15:00] LABS: Basophils Absolute Auto 0.02 K/mm3 (0.00-0.10); Basophils Percent Auto 0.3 % (0.0-1.0); Eosinophils Absolute Auto 0.02 K/mm3 (0.02-0.50); Eosinophils Percent Auto 0.3 % (1.0-6.0); Hematocrit 35.2 % (35.0-42.0); Hemoglobin 11.8 g/dL (11.7-13.8); Immature Granulocyte Absolute 0.03 K/mm3 (0.00-0.00); Immature Granulocyte Percent A 0.4 % (0.0-0.0); Lymphocytes Absolute Auto 0.74 K/mm3 (1.10-4.50); Lymphocytes Percent Auto 10.5 % (18.0-42.0); Mean Corpuscular HGB Conc 33.5 g/dL (32.0-36.0); Mean Corpuscular Hemoglobin 30.4 pg (27.0-31.0); Mean Corpuscular Volume 90.7 fL (78.0-102.0); Mean Platelet Volume 9.9 fl (9.2-11.8); Monocytes Absolute Auto 0.57 K/mm3 (0.10-0.90); Monocytes Percent Auto 8.1 % (2.0-11.0); Neutrophils Absolute Auto 5.7 K/mm3 (1.7-7.2); Neutrophils Percent Auto 80.4 % (50.0-70.0); Platelet Count Result 214 K/mm3 (150-420); Red Blood Count 3.88 M/mm3 (4.20-5.40); Red Cell Distribution Width 13.9 % (11.6-14.4); White Blood Count 7.1 K/mm3 (4.8-10.8)
[2023-06-15 15:14] LABS: D Dimer 1.01 mg/L (0.19-0.50)
[2023-06-15] MEDS: ACETAMINOPHEN 500 MG TABLET PO (15:20)
[2023-06-15 15:25] LABS: Alanine Aminotransferase 21 U/L (14-59); Albumin Level 3.3 g/dL (3.4-5.0); Alkaline Phosphatase 78 U/L (46-116); Anion Gap 6 mmol/L (8-16); Aspartate Amino Transferase 23 U/L (15-37); Bilirubin,Total 0.3 mg/dL (0.00-1.00); Blood Urea Nitrogen 41 mg/dL (7-18); Calcium 9.7 mg/dL (8.5-10.1); Carbon Dioxide 37 mmol/L (21-32); Chloride 90 mmol/L (98-108); Estimated CRCL calculation 12 ml/min; Estimated Glomerular Filt Rate 27; Glucose 112 mg/dL (70-99); Lactic Acid Reflex 1.2 mmol/L (0.4-2.0); NT Pro B Type Natriuretic Pept 4889 pg/mL (0-450); Osmolality Calculated 287 mOsm/kg (285-295); Potassium 3.4 mmol/L (3.5-5.1); Sodium 133 mmol/L (136-145); Total Protein 7.5 g/dL (6.4-8.2); Troponin I 37.8 ng/L (0.00-60.4)
[2023-06-15 15:50] LABS: Erythrocyte Sedimentation Rate 48 mm/hr (0-20)
--- NOTE | 2023-06-15 16:26 | PC.NURSE ---
patient to bathroom via wheelchair with RN assist. urine specimen taken to lab and patient offered another warm blanket but declined. patient awake and alert, states she is ready to go home and sit back in my chair . Patient daughter at bedside, concerned about patient BP which is currently 163/105 and other values including 153/102, 164/93, 191/92, 174/101, provider aware and updated.
[2023-06-15 16:28] LABS: Appearance Urine Slightly Cloudy (Clear); Bilirubin Urine Negative (Negative); Blood Urine 1+ (Negative); Color Urine Light Yellow (Yellow); Glucose Urine UA Negative (Negative); Ketones Urine Negative (Negative); Leukocyte Esterase Ur 1+ LEU/UL (Negative); Nitrate Urine Negative (Negative); Protein Urine 2+ (Negative); Specific Grav Ur 1.015 (1.010-1.020); Urobilinogen Urine 0.2 mg/dL (0.2-1.0)
[2023-06-15 16:32] LABS: Add Urine Microscopic? YES
[2023-06-15 16:33] LABS: Bacteria Urine 3+ /hpf; Squamous Epithelial Cell Urine Few /hpf (Few); WBC Urine 21-30 /hpf (0-3)
--- NOTE | 2023-06-15 17:50 | PC.NURSE ---
IV started, patient tolerated well. daughter at bedside. patient and daughter aware and agreeable on plan to admit.
--- NOTE | 2023-06-15 18:45 | ADMGEN ---
This patient, Charisma Myles, was admitted to 2nd Floor Room 209-1. Patient/family oriented to hospital policies and general routines including ID bracelet, bed and alarms, visiting hours, pain management, procedures, bathroom and other care routines, personal items, smoking policy, room service/diet, and visiting hours. Information on how to activate the Rapid Response Team has been discussed. Patient/Family are encouraged to report perceived risks to care and to ask questions if they do not understand what they are told or what they should do.
--- NOTE | 2023-06-15 18:50 | PC.NURSE ---
Daughter here, aware of orders for urinary catheter and refuses at this time.
[2023-06-15] MEDS: SODIUM CHLORIDE 0.9% IV 250 ML BAG 500 ML IVPB (18:55)
--- NOTE | 2023-06-15 19:00 | PC.NURSE ---
Medication orders pulled and sent with patient to floor to be given inpatient.
[2023-06-15] MEDS: SODIUM CHLORIDE 0.9% IV 1,000 ML 75 ML IV CONT (19:59)
[2023-06-15] MEDS: ACETAMINOPHEN 325 MG TABLET 650 MG PO (21:03)
[2023-06-15] MEDS: traZODone HCL 50 MG TABLET PO (21:03)
[2023-06-15] MEDS: HEPARIN SODIUM 5,000 UNITS/ML VIAL 5000 UNITS SUB-Q (21:04)
[2023-06-16] VITALS: BP 184/95; PULSE 82; RESP 18; TEMP 36.5; O2SAT 98
--- NOTE | 2023-06-16 00:37 | PC.NURSE ---
Pt incontinent of soft and loose BM at this time, states she woke up and had to go , did not make it to bedside commode, BM cleaned/sterilized from floor and commode, pt denies further complaints at this time.
[2023-06-16 05:30] LABS: Basophils Absolute Auto 0.02 K/mm3 (0.00-0.10); Basophils Percent Auto 0.3 % (0.0-1.0); Eosinophils Absolute Auto 0.11 K/mm3 (0.02-0.50); Eosinophils Percent Auto 1.5 % (1.0-6.0); Hematocrit 30.9 % (35.0-42.0); Hemoglobin 10.3 g/dL (11.7-13.8); Immature Granulocyte Absolute 0.01 K/mm3 (0.00-0.00); Immature Granulocyte Percent A 0.1 % (0.0-0.0); Lymphocytes Absolute Auto 0.87 K/mm3 (1.10-4.50); Mean Corpuscular HGB Conc 33.3 g/dL (32.0-36.0); Mean Corpuscular Hemoglobin 30.5 pg (27.0-31.0); Mean Corpuscular Volume 91.4 fL (78.0-102.0); Mean Platelet Volume 9.7 fl (9.2-11.8); Monocytes Absolute Auto 0.47 K/mm3 (0.10-0.90); Monocytes Percent Auto 6.5 % (2.0-11.0); Neutrophils Absolute Auto 5.8 K/mm3 (1.7-7.2); Neutrophils Percent Auto 79.6 % (50.0-70.0); Platelet Count Result 188 K/mm3 (150-420); Red Blood Count 3.38 M/mm3 (4.20-5.40); Red Cell Distribution Width 13.8 % (11.6-14.4); White Blood Count 7.3 K/mm3 (4.8-10.8)
[2023-06-16 05:39] LABS: Anion Gap 5 mmol/L (8-16); Blood Urea Nitrogen 29 mg/dL (7-18); Calcium 8.5 mg/dL (8.5-10.1); Carbon Dioxide 35 mmol/L (21-32); Chloride 98 mmol/L (98-108); Estimated CRCL calculation 13 ml/min; Estimated Glomerular Filt Rate 34; Glucose 97 mg/dL (70-99); Osmolality Calculated 291 mOsm/kg (285-295); Potassium 2.7 mmol/L (3.5-5.1); Sodium 138 mmol/L (136-145)
[2023-06-16 08:00] VITALS: BP 168/88; PULSE 87; RESP 20; TEMP 36.6; O2SAT 98
[2023-06-16] MEDS: HEPARIN SODIUM 5,000 UNITS/ML VIAL 5000 UNITS SUB-Q (09:02)
[2023-06-16] MEDS: PANTOPRAZOLE SODIUM IV 40 MG VIAL IV PUSH (09:02)
--- NOTE | 2023-06-16 09:34 | PM.DS ---
DS: Admitting Diagnosis Discharge Date 06/16/2023 Admitting Diagnosis UTI, Weakness, Acute kidney injury, DS: Discharge Diagnosis Discharge Diagnosis (1) Acute kidney injury superimposed on chronic kidney disease: Code(s): N17.9 - Acute kidney failure, unspecified; N18.9 - Chronic kidney disease, unspecified Status: Acute Assessment and Plan: Treated with IV hydration avoided nephrotoxic medication (2) Urinary tract infection in female: Code(s): N39.0 - Urinary tract infection, site not specified Status: Acute Assessment and Plan: Oral antibiotic started and will continue to take until completed Going home on Macrobid continue to drink plenty of water avoid soda and bubbly drinks as much as possible no bubble baths . (3) Generalized weakness: Code(s): R53.1 - Weakness Status: Acute (4) GERD (gastroesophageal reflux disease): Code(s): K21.9 - Gastro-esophageal reflux disease without esophagitis Status: Acute Assessment and Plan: Protonix at home (5) COPD (chronic obstructive pulmonary disease): Code(s): J44.9 - Chronic obstructive pulmonary disease, unspecified Status: Acute Assessment and Plan: continue home medication stable at this time (6) Hypertension: Code(s): I10 - Essential (primary) hypertension Status: Acute Assessment and Plan: continue to adjust medication you have to be sure to take medication . DS: Summary Hospital Course Reason for hospitalization: UTI, WEakness, HYPokalemia, Acute kidney injury Hospital Course: Female presented to the emergency room with weakness not feeling well was found to have urinary tract infection with acute kidney injury. Patient has stated that she was not feeling well over the past couple of days went into her primary care provider's office about appointment having wait a while decided that would be better face just came to the emergency room. Today patient was found to be hypokalemic with a potassium of 2.7 she currently is receiving some IV potassium as well as some oral potassium. Patient is very anxious to go home stating that she feels back to her normal state she has a past medical history of some hyperlipidemia, hypertension, some depression, weakness, patient is very frail patient vitals have remained stable currently 168/88 pulse is 87, respirations are 20, temperature is 98.0?, OT sat is 98% on room air patient's was evaluated by physical therapy and feels like patient is back at her normal state patient's BUN and creatinine has improved BUN is 29 currently creatinine is 1.49 patient's hemoglobin is stable at 10.3 platelets is 188 and patient's potassium is repeated this afternoon and if her levels are above 3 we will discharge patient home on oral antibiotics for she will follow-up with her primary care provider. VQ scan show low or intermediate probability of PE on scan . Patient is stable for discharge and will go home on oral antibiotics Time Spent with Patient Time attestation: Total time spent providing and/or coordinating discharge services: Exam Narrative: GENERAL:Well-appearing, Frail and pale and in no acute distress. HEAD:Normocephalic, atraumatic. EYES: PERRLA ENT: Nares clear, no rhinorrhea or epistaxis. Mucous membranes moist. CHEST: Clear to diminished to lower right lobe auscultation. No respiratory distress. HEART: Regular rate and rhythm.. Normal peripheral pulses. ABDOMEN: Soft, nontender, nondistended, normal active bowel sounds. EXTREMITIES: Normal range of motion. No edema. SKIN: Warm, dry, no rash. NEURO: No focal deficits. Alert and oriented x3. DS: Data Data Completed and Pending Labs on day of discharge: Labs from last 24 hours 06/16/23 06/15/23 06/15/23 05:26 16:20 14:53 WBC 7.3 7.1 RBC 3.38 L 3.88 L Hgb 10.3 L 11.8 Hct 30.9 L 35.2 MCV 91.4 90.7 MCH 30[address]
[2023-06-16] MEDS: ATORVASTATIN 10 MG TABLET 20 MG PO (09:47)
[2023-06-16] MEDS: CLOPIDOGREL BISULFATE 75 MG TABLET PO (09:47)
[2023-06-16] MEDS: dilTIAZem HCL 30 MG TABLET PO ×2 (09:47→13:33)
[2023-06-16] MEDS: ASPIRIN 81 MG CHEWABLE TABLET PO (09:47)
[2023-06-16] MEDS: KCL 20 MEQ/SW 100 ML 100 ML 50 MEQ IVPB (09:50)
[2023-06-16 11:34] VITALS: PULSE 88
[2023-06-16] MEDS: lisinopriL 10 MG TABLET PO (11:34)
[2023-06-16] MEDS: METOPROLOL TARTRATE TAB 25 MG, METOPROLOL TARTRATE TAB 12.5 MG 37.5 MG PO (11:34)
[2023-06-16] MEDS: POTASSIUM CHLORIDE 20 MEQ PACKET (FOR LIQUID) 40 MEQ BY MOUTH (11:34)
[2023-06-16 14:42] LABS: Potassium 4.5 mmol/L (3.5-5.1)
--- NOTE | 2023-06-16 15:15 | PC.NURSE ---
discharge instructions reviewed with patient and her daughter. All questions answered. pt escorted via wheelchair and assisted into private vehicle.
--- NOTE | 2023-06-18 09:48 | PC.NURSE ---
Daughter states they received and understood the discharge instructions. She also states everything was excellent and everybody did a great job .
== END 2023-06-16 15:25 | disposition home or self-care (01) ==
LOC: CHSED 17:59 → CHS2ND 18:11
PROVIDERS: Nurse Practitioner Family; Admitting Provider Internal Medicine; Emergency Provider Emergency Medicine; PCP Internal Medicine; Visit Provider Internal Medicine
DX: N39.0 Urinary tract infection, site not specified (principal); N17.9 Acute kidney failure, unspecified; I12.9 Hypertensive chronic kidney disease with stage 1 through stage 4 chronic kidney disease, or unspecified chronic kidney disease; N18.9 Chronic kidney disease, unspecified; I25.10 Atherosclerotic heart disease of native coronary artery without angina pectoris; I48.20 Chronic atrial fibrillation, unspecified; I25.2 Old myocardial infarction; J44.9 Chronic obstructive pulmonary disease, unspecified; E87.6 Hypokalemia; E78.5 Hyperlipidemia, unspecified; K21.9 Gastro-esophageal reflux disease without esophagitis; R06.00 Dyspnea, unspecified; Z79.01 Long term (current) use of anticoagulants; Z79.82 Long term (current) use of aspirin; Z85.89 Personal history of malignant neoplasm of other organs and systems; Z95.5 Presence of coronary angioplasty implant and graft; Z86.718 Personal history of other venous thrombosis and embolism
CPT/HCPCS: 36415; 71045; 71250; 78580; 80048; 80053; 81001; 83605; 83735; 83880; 84132; 84443; 84484; 85025; 85380; 85652; 86140; 87077; 87086; 87088; 87186; 93005; 96361; 96365; 96366; 96367; 96372; 97161; 97165; 99285; A9270; A9540; C9113; G0378; J0696; J1644; J3480; J7030; J7050

== ENCOUNTER 2023-07-24 16:56 | Emergency (ER) | payer MEDICARE, OTHER, SELFPAY ==
--- NOTE | ~2023-07-24 | CT_ITS ---
EXAMINATION: CT brain wo con DATE: 07/24/2023 17:45 INDICATION: Confusion. TECHNIQUE: Computed tomography (CT) of the head was performed without intravenous contrast. The mA wa s adjusted according to patient size. Iterative reconstruction technique was employed. The dose-lengt h product was 1210.67 mGy-cm. COMPARISON: None FINDINGS: There are scattered areas of low attenuation in the cerebral white matter. There is no intr acranial hemorrhage, acute infarction, or abnormal intracranial mass lesion. The ventricles are mad[place] l in size. The paranasal sinuses are clear. The mastoid air cells are normal. IMPRESSION: 1. Moderate nonspecific cerebral white matter disease, which likely represents chronic small vessel i schemic disease. 2. Sensitivity moderately decreased by motion artifact. Reviewed, dictated and finalized at location E. IMPRESSION: 1. Moderate nonspecific cerebral white matter disease, which likely represents chronic small vessel ischemic disease. 2. Sensitivity moderately decreased by motion artifact.
--- NOTE | ~2023-07-24 | XR_ITS ---
EXAMINATION: XR chest 1V portable DATE: 07/24/2023 17:45 INDICATION: Altered mental status. TECHNIQUE: A single frontal view of the chest was obtained on 2 radiographs. COMPARISON: Chest single view 06/15/2023, chest CT 06/15/2023 FINDINGS: The lungs are hyperexpanded with lucencies, consistent with emphysema. A calcified left carmen g nodule is consistent with old granulomatous disease. There is mild scarring at the lung apices. The re are airspace opacities in left lower lung zone. No pleural effusion or pneumothorax. The heart siz e is normal. IMPRESSION: 1. Airspace opacities in left lower lung zone, consistent with pneumonia. 2. Emphysema. Reviewed, dictated and finalized at location E.
--- NOTE | 2023-07-24 16:58 | ECG_ITS ---
Measurements Intervals [place] Rate: 113 P: 88 GA: 142 QRS: 75 QRSD: 87 T: 57 QT: 332 QTc: 456 Interpretive Statements SINUS TACHYCARDIA ATRIAL COUPLET AND FREQUENT VENTRICULAR PREMATURE COMPLEXES BORDERLINE ST-T WAVE ABNORMALITY- INF/LAT LEADS BASELINE ARTIFACT- I, II, III, AVR, AVL, AVF, V1-V6 ABNORMAL ECG COMPARED TO ECG 06/15/2023 15:00:33 [address]CARDIA NOW PRESENT ST (T WAVE) DEVIATION NOW PRESENT Electronically Signed On 07-24-2023 20:18:41 CDT by Gregg Hernandez D.O.
[2023-07-24 17:11] VITALS: BP 186/103; PULSE 111; RESP 20; TEMP 36.9; O2SAT 94
--- NOTE | 2023-07-24 17:21 | ED.AMS ---
HPI - Altered Mental Status General Chief Complaint: Altered Mental Status Stated Complaint: Confusion/weakness/UTI Time Seen by Provider: 07/24/23 16:58 Source: patient, family and EMS Mode of arrival: EMS Limitations: clinical condition and dementia History of Present Illness HPI narrative: Patient is an 82-year-old female with known dementia who lives at home with family. She was hospitalized 2 weeks ago at this facility for UTI and treated inpatient. She has been home for 2 weeks and been having weakness which has gotten worse over the past 2 weeks. Last night, patient was having worse weakness and some focal changes which resolved quickly. Family tried to get her to come to the hospital but she would not come last night. Today she presents with no focal complaints but does complain of general weakness and not eating. Her code status is CPR without intubation. MD complaint: altered mental status, confusion and weakness Onset (ago): week(s) (2) Timing confirmed by: family member Severity: moderate Consistency of symptoms: getting Worse Context: history of similar presentation Associated symptoms: cough and weakness Related Data Home Medications Medication Instructions Recorded Confirmed aspirin 81 mg chewable tablet 81 mg PO DAILY 10/18/19 07/24/23 montelukast 10 mg tablet 10 mg PO HS 10/18/19 07/24/23 pilocarpine HCl 5 mg tablet 2.5 mg PO BID 07/24/23 07/24/23 Allergies Allergy/AdvReac Type Severity Reaction Status Date / Time Penicillins Allergy Hives Verified 07/24/23 17:17 Sulfa (Sulfonamide Allergy Hives Verified 07/24/23 17:17 Antibiotics) Review of Systems Review of Systems: All systems reviewed & are unremarkable except as noted in HPI and below Constitutional: Constitutional: Reports no additional constitutional complaints Eyes: Eyes: Reports no additional eye complaints ENT: Reports system reviewed and no additional complaints, except as documented Cardiovascular: Cardiovascular: Reports no additional cardiovascular complaints Respiratory: Respiratory: Reports no additional respiratory complaints Gastrointestinal: Gastrointestinal: Reports no additional gastrointestinal complaints Genitourinary: Genitourinary: Reports no additional female genitourinary complaints Musculoskeletal: Musculoskeletal: Reports no additional musculoskeletal complaints Integumentary/Breasts: Skin/Breast: Reports system reviewed and no additional complaints, except as docu Neurologic: Reports system reviewed and no additional complaints, except as documented Psychiatric: Psychiatric: Reports no additional psychiatric complaints Endocrine: Endocrine: Reports no additional endocrine complaints Hematologic/Lymphatic: Hematologic/Lymphatic: Reports no additional hematologic/lymphatic complaints Allergic/Immunologic: Allergic/Immunologic: Reports no additional allergic/immunologic complaints [facility] Past Medical History Medical History Coronary artery disease DVT (deep venous thrombosis) Surgical History Surgical History H/O bilateral oophorectomy History of appendectomy History of hysterectomy History of stress incontinence procedure using tension free vaginal tape Stented coronary artery Social History Social History Smoking packs per day: 1 Smoking cigarettes per day: 20.0 Years smoked: 50 Smoking pack-years: 50.00 Smoking status: Former smoker Tobacco type: cigarettes Second hand tobacco smoke exposure: No Smoking end date: 05/23/04 Alcohol intake: never Substance use: never Substance use type: does not use Lack of Transportation: No Lack of Food: Never True Current Housing: I Have Housing Concerned About Future Housing: No Difficulty Paying Gas/Electric Bills: No Difficulty Paying for Meds: No Curre
[2023-07-24 17:51] VITALS: PULSE 113
[2023-07-24 17:53] LABS: Influenza A QL RT-PCR Negative (Negative); Influenza B QL RT-PCR Negative (Negative); SARS-CoV-2 RNA PCR Negative (Negative)
[2023-07-24 17:56] LABS: RSV RNA, RT-PCR Negative (Negative)
[2023-07-24] MEDS: SODIUM CHLORIDE 0.9% IV 500 ML 999 ML IV CONT ×2 (18:01→18:33)
[2023-07-24] MEDS: OLANZapine 2.5 MG, WATER, STERILE FOR INJECTION 2.1 ML IM ×2 (18:02→19:18)
[2023-07-24 18:07] LABS: Basophils Absolute Auto 0.03 K/mm3 (0.00-0.10); Basophils Percent Auto 0.2 % (0.0-1.0); Hemoglobin 10.7 g/dL (11.7-13.8); Immature Granulocyte Absolute 0.14 K/mm3 (0.00-0.00); Lymphocytes Absolute Auto 0.76 K/mm3 (1.10-4.50); Lymphocytes Percent Auto 5.5 % (18.0-42.0); Mean Corpuscular HGB Conc 34.5 g/dL (32.0-36.0); Mean Corpuscular Hemoglobin 31.4 pg (27.0-31.0); Mean Corpuscular Volume 90.9 fL (78.0-102.0); Mean Platelet Volume 9.7 fl (9.2-11.8); Monocytes Absolute Auto 0.82 K/mm3 (0.10-0.90); Monocytes Percent Auto 5.9 % (2.0-11.0); Neutrophils Absolute Auto 12.2 K/mm3 (1.7-7.2); Neutrophils Percent Auto 87.4 % (50.0-70.0); Platelet Count Result 262 K/mm3 (150-420); Red Blood Count 3.41 M/mm3 (4.20-5.40); Red Cell Distribution Width 13.5 % (11.6-14.4); White Blood Count 13.9 K/mm3 (4.8-10.8)
[2023-07-24 18:26] LABS: Lactic Acid Reflex 2.2 mmol/L (0.4-2.0)
[2023-07-24 18:31] LABS: Appearance Urine Clear (Clear); Bilirubin Urine Negative (Negative); Blood Urine Negative (Negative); Color Urine Light Yellow (Yellow); Glucose Urine UA Negative (Negative); Ketones Urine Negative (Negative); Leukocyte Esterase Ur Negative LEU/UL (Negative); Nitrate Urine Negative (Negative); Protein Urine 2+ (Negative); Urobilinogen Urine 0.2 mg/dL (0.2-1.0); pH Urine 7.5 (5.0-8.0)
[2023-07-24] MEDS: CEFEPIME 1 GM/NS 50 ML 1 GM/50 ML BAG IVPB (18:33)
[2023-07-24 18:35] LABS: Alanine Aminotransferase 19 U/L (14-59); Albumin Level 2.9 g/dL (3.4-5.0); Alkaline Phosphatase 86 U/L (46-116); Anion Gap 7 mmol/L (8-16); Aspartate Amino Transferase 36 U/L (15-37); Bilirubin,Total 0.6 mg/dL (0.00-1.00); Blood Urea Nitrogen 40 mg/dL (7-18); Calcium 9.2 mg/dL (8.5-10.1); Carbon Dioxide 37 mmol/L (21-32); Chloride 86 mmol/L (98-108); Estimated Glomerular Filt Rate 30; Glucose 125 mg/dL (70-99); Osmolality Calculated 280 mOsm/kg (285-295); Potassium 2.8 mmol/L (3.5-5.1); Sodium 130 mmol/L (136-145)
[2023-07-24 18:37] LABS: Add Urine Microscopic? YES; Bacteria Urine Trace /hpf; RBC Urine 0-2 /hpf (0-2); Squamous Epithelial Cell Urine Rare /hpf (Few); WBC Urine 0-3 /hpf (0-3)
[2023-07-24 18:55] LABS: Magnesium 1.7 mg/dL (1.8-2.4)
[2023-07-24 18:59] LABS: Partial Thromboplastin Time 27.6 SEC (23.90-30.70); Prothrombin Time 10.9 Seconds (9.50-12.10)
[2023-07-24 19:00] VITALS: BP 128/88; PULSE 95; RESP 20; O2SAT 93
[2023-07-24] MEDS: KCL 20 MEQ/SW 100 ML 100 ML 50 MEQ IVPB (19:03)
[2023-07-24] MEDS: ASPIRIN 300 MG SUPPOSITORY RECTAL (19:03)
[2023-07-24] MEDS: PLEASE ENTER HEIGHT AND WEIGHT 1 EACH XX (19:23)
[2023-07-24 20:56] VITALS: BP 114/71; PULSE 93; O2SAT 93
[2023-07-24 21:05] LABS: Reflex Lactic Acid Yes or No Add Lactic
[2023-07-24 21:35] VITALS: BP 135/99; PULSE 92; RESP 20; O2SAT 94
[2023-07-24 21:38] LABS: Lactic Acid 0.9 mmol/L (0.4-2.0)
--- NOTE | 2023-07-27 13:59 | PC.NURSE ---
Final urine culture report, no growth, no further treatment or action needed.
--- NOTE | 2023-07-31 12:47 | PC.NURSE ---
Final Blood culture report: No growth after 5 days, no further treatment or action needed.
== END 2023-07-24 21:45 | disposition short-term general hospital (02) ==
PROVIDERS: Emergency Provider Emergency Medicine; PCP Internal Medicine
DX: I21.4 Non-ST elevation (NSTEMI) myocardial infarction (principal); R41.0 Disorientation, unspecified; E87.8 Other disorders of electrolyte and fluid balance, not elsewhere classified; N17.9 Acute kidney failure, unspecified; J18.9 Pneumonia, unspecified organism; F03.90 Unspecified dementia, unspecified severity, without behavioral disturbance, psychotic disturbance, mood disturbance, and anxiety; Z79.82 Long term (current) use of aspirin; Z79.899 Other long term (current) drug therapy; I25.10 Atherosclerotic heart disease of native coronary artery without angina pectoris; Z86.718 Personal history of other venous thrombosis and embolism; Z87.891 Personal history of nicotine dependence; Z20.822 Contact with and (suspected) exposure to COVID-19
CPT/HCPCS: 36415; 70450; 71045; 80053; 81001; 83605; 83735; 84484; 85025; 85610; 85730; 87040; 87086; 87637; 93005; 96361; 96365; 96366; 96367; 96368; 96372; 99285; A9270; J0692; J3370; J3480; J7040

== ENCOUNTER 2023-07-24 22:37 | Inpatient (IN) | payer MEDICARE, OTHER, SELFPAY ==
--- NOTE | ~2023-07-24 | XR_ITS ---
EXAMINATION: XR barium swallow modified DATE: 07/25/2023 12:10 INDICATION: Dementia, tonsillar cancer TECHNIQUE: Modified barium esophagram was performed by myself who administered fluoroscopy, in conju nction with speech pathologist who administered barium in varying consistencies as per speech patholo gist documentation. This was recorded on tape. A single fluoroscopic spot image was recorded. Fluoros copy exposure time was 1.2 minutes. The DAP for this procedure was 0.7 Gycm2. FINDINGS: Oral stage: Reduced labial seal/lip tension, reduced lingual movement. Pharyngeal phase: Reduced laryngeal adduction, reduced tongue base contraction, reduced pharyngeal sq ueeze, vallecular puriform sinus residue. Laryngeal penetration: Present. Aspiration: Present. Laryngeal sensitivity: Present. IMPRESSION: Aspiration with thin and thickened liquids Please refer to speech pathologist findings an d specific feeding recommendations. Reviewed, dictated and finalized at location A. IMPRESSION: Aspiration with thin and thickened liquids Please refer to speech p athologist findings and specific feeding recommendations.
[2023-07-24 22:30] VITALS: BP 123/85; PULSE 101; RESP 16; TEMP 36.9; O2SAT 92
[2023-07-24 22:36] VITALS: PULSE 91
--- NOTE | 2023-07-24 22:50 | PM.IMHP ---
H&P: HPI History of Present Illness Date/Time: 07/24/23 22:50 Chief Complaint: Increased confusion Narrative: 82-year-old female with a past medical history of coronary artery disease with prior stents, dementia, GERD, chronic kidney disease stage 3, atrial fibrillation and COPD among other comorbidities who presented to the ER at [facility] due to increased confusion from baseline. Source of information comes from the daughters report to nurses and ER physicians report, and reports from outside facility. The patient is alert oriented only to her name and cannot provide any information. Patient's daughter reports that the patient has had significant trouble with dysphagia and chronically low appetite for years since she had tonsillar cancer. Patient essentially lives off of Ensure and supplements. Any time the patient becomes ill at all it becomes difficult to get her to eat or drink anything. The patient was briefly admitted to the hospital at [facility] for 1 day 2 weeks ago for UTI and weakness with some focal changes that quickly resolved. The patient has been having progressive weakness since that time. They tried to get her come to the hospital the night before but she would not come. When the patient traveled back in May her weight was 33.6 kg. She is now down to 30 kg. The family was concerned that she may have a UTI and brought her into the ER for evaluation. The patient's urine did not suggest he urinary tract infection. The patient had been having minimal cough. Patient was noted to be wheezing on initial evaluation in the ER and she does have a history of COPD. Chest x-ray and CT scan from outside facility were both reviewed. They demonstrated left lower lobe pneumonia. Patient did have an associated leukocytosis but no fever. She did have some tachycardia. Initial EKG demonstrated ST changes in leads 4 5 and 6. Initial troponin at the outside facility was 13,000 her prior troponins at the outside facility in May was 36. The patient tells me initially that she does have pain but then when asked her where the pain is she states no. Patient was noted to have a large mucous ball sitting in her mouth that was yellow in appearance. Patient has been afebrile. The patient's repeat troponin on arrival to our facility was 1.87. Repeat EKG on arrival to our facility demonstrated no significant signs of ischemia but some mild baseline artifact. The patient was transferred to our facility due to evidence of non STEMI/type 2 infarct in the setting of pneumonia. For evaluation and management by Cardiology. At the outside facility the patient received cefepime and vancomycin as the ER provider felt the patient had healthcare associated pneumonia. Patient also received rectal aspirin. According to the outside records the patient's code status is CPR without intubation. However the patient's daughter is a respiratory therapist and states that the patient would be crushed if we did CPR and requested that she would not want CPR. And after further discussion she decided that it probably would not help the patient's overall quality of life to be intubated in the the event of respiratory failure and has opted for the patient to be a DNR/DNI. Review of Systems Review of Systems: ROS unobtainable: Yes unobtainable due to medical condition (Dementia) PMF Past Medical History Medical History Bilateral femoral artery stenosis Status post arthrectomy Chronic kidney disease, stage 3b COPD (chronic obstructive pulmonary disease) Coronary artery disease Dementia DVT (deep venous thrombosis) Dysphagia Essential hypertension GERD (gastroesophageal reflux disease) Osteoporosis Tonsillar cancer Surgical History Surgical History Gastrojejunostomy tube status With subsequent removal H/O bilateral oophorectomy History of appendectomy History
[2023-07-24 23:19] VITALS: BMI 11.3
[2023-07-24 23:47] LABS: Lactic Acid Reflex 0.9 mmol/L (0.7-2.0)
[2023-07-24] MEDS: SODIUM CHLORIDE 0.9% IV 1,000 ML 70 ML IV CONT (23:58)
[2023-07-24] MEDS: MAGNESIUM SULF 2 GM/WATER 50ML 2 GM/50 ML BAG IVPB (23:59)
[2023-07-25] VITALS (18 sets, daily range): BP systolic 144–165; BP diastolic 67–115; PULSE 72–104; RESP 14–20; TEMP 36.4–37.6; O2SAT 93–100; BMI 11.3
--- NOTE | 2023-07-25 | ECG_ITS ---
Measurements Intervals [place] Rate: 85 P: 78 UT: 133 QRS: 68 QRSD: 90 T: 63 QT: 409 QTc: 488 Interpretive Statements SINUS RHYTHM VOLTAGE CRITERIA FOR LVH BASELINE ARTIFACT- I, II, III, AVR BORDERLINE ECG COMPARED TO ECG 07/25/2023 00:16:36 SINUS RHYTHM NOW PRESENT Electronically Signed On 07-25-2023 16:02:39 CDT by Gregg Hernandez D.O.
--- NOTE | 2023-07-25 | ECG_ITS ---
Measurements Intervals [place] Rate: 90 P: 72 [place]: 118 QRS: 75 QRSD: 89 T: 70 QT: 374 QTc: 460 Interpretive Statements SINUS RHYTHM VENTRICULAR PREMATURE COMPLEX VOLTAGE CRITERIA FOR LVH CONSIDER ANTERIOR INFARCT, AGE INDETERMINATE BASELINE ARTIFACT- I, III, AVR, AVL, AVF, V1-V6 ABNORMAL ECG COMPARED TO ECG 07/24/2023 17:49:23 SINUS RHYTHM NOW PRESENT LEFT VENTRICULAR HYPERTROPHY NOW PRESENT Electronically Signed On 07-25-2023 7:58:11 CDT by Gregg Hernandez D.O.
--- NOTE | 2023-07-25 | ECHO_ITS ---
Patient Info Name: Charisma Myles Age: 82 years : 1940 Gender: Female Ht: 64 in Wt: 66 lbs BSA: 1.14 m2 HR: 91 bpm BP: 144 / 72 mmHg Heart Rhythm: Sinus Rhythm Technical Quality: Fair Exam Date: 07/25/2023 9:12 AM Exam Location: [facility] Patient Status: Inpatient Admit Date: 07/24/2023 Staff Ordering Physician: Gregg Hernandez DO Business Intelligence Analyst: Neeta Martinez RDCS Attending Provider: Marck Alberts MD Referring Physician: David MORE; Exam Type: CA echo doppler color flow Study Info Indications - elevated troponin R06.02 - Shortness of breath Complete two-dimensional, color flow and Doppler transthoracic echocardiogram is performed. History/Risk Factors Hypertension: Yes Dyslipidemia: No Congenital Heart Disease (CHD): No Peripheral Arterial Disease (PAD): No Myocardial Infarction (NH): Yes Chronic Lung Disease: No Obesity: No Renal Disease: No Coronary Artery Disease (CAD) Yes Congestive Heart Failure (CHF): No Cardiomyopathy/LV Systolic Dysfunction: No Date of Prior NH: 11/23/2015 Diabetes Mellitus: No COPD: Not Treated Tobacco Use: Former Cerebrovascular Disease: No Family History: Coronary Artery Disease Deep Vein Thrombosis (DVT): Acute Dialysis: None Frailty Scale (CSHA): 3: Managing Well Cardiac Arrest: No Prior Interventions PCI: No CABG: No Valve Surgery: No ICD: No PV Intervention: None Heart Transplant: No Summary 1. Complete two-dimensional, color flow and Doppler transthoracic echocardiogram is performed. 2. Left ventricular chamber dimension is normal. 3. Left ventricular systolic function is normal, estimated at 65-70%. 4. The left ventricular diastolic function is abnormal. 5. E/e' 17 is elevated. 6. There is moderate aortic valve sclerosis. 7. The mitral valve has severely calcified annulus. 8. There is trace tricuspid valve regurgitation. 9. No pulmonary hypertension, estimated pulmonary arterial systolic pressure is 21 mmHg. Left Ventricle E/e' 17 is elevated. Left ventricular chamber dimension is normal. Left ventricular systolic function is normal, estimated at 65-70%. The left ventricular diastolic function is abnormal. Right Ventricle Right ventricular chamber dimension is normal. Right ventricular systolic function is normal. Left Atria Left atrial chamber dimension is normal. Right Atria Right atrial chamber dimension is normal. Aortic Valve The aortic valve is probable trileaflet. There is moderate aortic valve sclerosis. There is no aortic valve stenosis. There is no aortic valve regurgitation. Pulmonic Valve There is no pulmonic regurgitation. Mitral Valve The mitral valve has severely calcified annulus. There is no mitral valve stenosis. There is no mitral valve regurgitation. Tricuspid Valve There is trace tricuspid valve regurgitation. No pulmonary hypertension, estimated pulmonary arterial systolic pressure is 21 mmHg. Pericardium/Pleural There is no pericardial effusion. Inferior Vena Cava Normal inferior vena cava with >50% collapse upon inspiration consistent with normal right atrial pressure, 5 mmHg. Aorta The aortic root size at the sinus of Valsalva is normal. Left Ventricular Outflow Tract Name Value Normal LVOT 2D
--- NOTE | 2023-07-25 00:31 | ADMGEN ---
This patient, Charisma Myles, was admitted to IMU Room 206-01 at 2225. Patient/family oriented to hospital policies and general routines including ID bracelet, bed and alarms, visiting hours, pain management, procedures, bathroom and other care routines, personal items, smoking policy, room service/diet, and visiting hours. Information on how to activate the Rapid Response Team has been discussed. Patient/Family are encouraged to report perceived risks to care and to ask questions if they do not understand what they are told or what they should do.
[2023-07-25] MEDS: AZITHROMYCIN 500 MG/NS 250 ML 500 MG/250 ML BAG 250 MG IVPB (01:53)
[2023-07-25] MEDS: HEPARIN SOD/D5W 100 UNITS/ML 25,000 UNITS/250 ML BAG IV CONT (01:53)
[2023-07-25] MEDS: ALBUTEROL SULFATE NEB 2.5 MG/3 ML INH 5 MG INHALATION ×3 (02:09→14:01)
[2023-07-25] MEDS: IPRATROPIUM BR 0.02% INH SOLN 0.5 MG/2.5 ML VIAL INHALATION ×3 (02:10→14:01)
--- NOTE | 2023-07-25 02:15 | PCRCNOTE ---
Pt would not keep mask on to take neb treatment.
[2023-07-25] MEDS: metroNIDAZOLE 500 MG/ISO 100ML 500 MG/100 ML BAG 100 MG IVPB ×4 (03:58→20:16)
[2023-07-25 05:45] LABS: Hematocrit 26.7 % (37.0-47.0); Hemoglobin 8.9 g/dL (12.0-15.0); Mean Corpuscular HGB Conc 33.3 g/dl (32-36); Mean Corpuscular Hemoglobin 30.9 pg (26-34); Mean Corpuscular Volume 92.7 fl (80-100); Mean Platelet Volume 10.2 fl (7.4-10.4); Platelet Count Result 218 k/mm3 (150-375); Red Blood Count 2.88 M/mm3 (4.2-5.4); Red Cell Distribution Width 13.6 % (11.5-14.5)
[2023-07-25 06:01] LABS: Alanine Aminotransferase 18 U/L (6-35); Albumin Level 2.9 g/dL (3.5-5.1); Alkaline Phosphatase 72 U/L (38-126); Anion Gap 5 mmol/L (8-16); Aspartate Amino Transferase 43 U/L (14-36); Bilirubin,Total 0.4 mg/dL (0.2-1.3); Blood Urea Nitrogen 31 mg/dL (7-17); Carbon Dioxide 36 mmol/L (22-30); Chloride 87 mmol/L (98-107); Estimated CRCL calculation 16 ml/min; Estimated Glomerular Filt Rate 43; Glucose 100 mg/dL (65-110); Magnesium 2.9 mg/dL (1.6-2.3); Phosphorus 2.8 mg/dL (2.5-4.5); Potassium 2.9 mmol/L (3.4-5.0); Sodium 128 mmol/L (137-145)
--- NOTE | 2023-07-25 07:40 | PM.CNCAR ---
Assessment and Plan Assessment and plan (1) Elevated troponin: Code(s): R77.8 - Other specified abnormalities of plasma proteins Status: Acute Assessment and Plan: Flat but elevated at 1.8. This could be related to pneumonia with CKD. Check troponin in tomorrow AM. Obtain echo. If no wall motion abnormality, would stop heparin drip. Continue aspirin. (2) Hypertension: Code(s): I10 - Essential (primary) hypertension Status: Acute Assessment and Plan: Monitor. Start Metoprolol Succinate 25 mg daily. (3) Pneumonia: Qualifiers: Pneumonia type: due to unspecified organism Laterality: left Lung location: lower lobe of lung Qualified Code(s): J18.9 - Pneumonia, unspecified organism Code(s): J18.9 - Pneumonia, unspecified organism Status: Acute Assessment and Plan: On antibiotics as per hospitalist. (4) Hypomagnesemia: Code(s): E83.42 - Hypomagnesemia Status: Acute Assessment and Plan: Replete levels. (5) Hypokalemia: Code(s): E87.6 - Hypokalemia Status: Acute Assessment and Plan: Replete levels. (6) Coronary artery disease: Code(s): I25.10 - Atherosclerotic heart disease of [place] coronary artery without angina pectoris Status: Acute Assessment and Plan: Stable. 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 She has a history of CT with 1 or 2 stents in 2014-, PAF during that time but not since, dementia. I was not able to get much information from her but I was able to obtain history from her daughter over the phone, and from the chart. She lives with her daughter and though she is very forgetful with short term memory, she if functional. She is able to do things around the house and they would walk around [facility]. Yesterday after getting home her daughter noted she was more not herself in that she was more confused and uncoordinated. 2 weeks ago she had a UTI and was treated for it. I was not able to get much information from the patient. She had eyes closed but would follow commands and open her eyes when asked to do so. Otherwise she was not answering any of my questions. 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 Chronic kidney disease, stage 3b COPD (chronic obstructive pulmonary disease) Coronary artery disease Dementia DVT (deep venous thrombosis) Dysphagia Essential hypertension GERD (gastroesophageal reflux disease) Osteoporosis Tonsillar cancer Surgical History Surgical History Gastrojejunostomy tube status With subsequent removal H/O bilateral oophorectomy History of appendectomy History of hysterectomy History of stress incontinence procedure using tension free vaginal tape Status post cataract extraction of both eyes with insertion of intraocular lens Stented coronary artery Family History Family History Grandparent Congestive heart failure Sibling Hx of CABG Father Alzheimer's dementia Parkinson disease Mother Heart disease Social History Social History (Updated 07/25/23 @ 01:42 by Roxane Garcia DO) Social History: The patient lives at home with her daughter. She is a former smoker. Daughter denies the patient having history of alcohol or drug use. 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 Code status: DNR/DNI [facility]
[2023-07-25 07:58] LABS: Cholesterol 153 mg/dL (0-200); HDL Direct 37 mg/dL; Triglycerides 96 mg/dL (<150)
[2023-07-25 08:07] LABS: LDL Cholesterol Direct 86 mg/dL
[2023-07-25 08:42] LABS: Partial Thromboplastin Time 39.6 SECONDS (22.3-36.8)
[2023-07-25] MEDS: HEPARIN SODIUM 5,000 UNITS/ML VIAL 2500 UNITS IV PUSH (09:17)
--- NOTE | 2023-07-25 11:43 | PM.IMPN ---
Progress Note: A&P Assessment and Plan (1) Pneumonia: Qualifiers: Laterality: left Lung location: lower lobe of lung Pneumonia type: due to unspecified organism Qualified Code(s): J18.9 - Pneumonia, unspecified organism Code(s): J18.9 - Pneumonia, unspecified organism Status: Acute Assessment and Plan: patient may have aspiration pneumonia. Will change antibiotics to azithromycin and Flagyl. she is allergic to penicillin. will check urine Legionella and pneumococcal antigen. Blood cultures and urine cultures are pending. (2) Acute kidney injury superimposed on chronic kidney disease: Code(s): N17.9 - Acute kidney failure, unspecified; N18.9 - Chronic kidney disease, unspecified Status: Acute Assessment and Plan: Continue IV fluids. Monitor BMP (3) Senile dementia with delirium: Code(s): F03.92 - Unspecified dementia, unspecified severity, with psychotic disturbance Status: Acute (4) Acute non-ST elevation myocardial infarction (NSTEMI): Code(s): I21.4 - Non-ST elevation (NSTEMI) myocardial infarction Status: Acute Assessment and Plan: Patient does have troponin elevation. I suspect this is due to demand ischemia from the patient's pneumonia and complicated in the setting of acute on chronic kidney injury. Cardiology consulted. echo obtained. No wall motion abnormality. Discontinue heparin drip (5) COPD (chronic obstructive pulmonary disease): Qualifiers: COPD type: COPD with acute lower respiratory infection Qualified Code(s): J44.0 - Chronic obstructive pulmonary disease with (acute) lower respiratory infection Code(s): J44.9 - Chronic obstructive pulmonary disease, unspecified Status: Acute Subjective Date/time seen: 07/25/23 11:43 Interval history: Stable. No chest pain Review of Systems Review of Systems: ROS unobtainable: Yes unobtainable due to medical condition (Dementia) Exam Narrative: Weight 30 kg BMI 11.4 Const: Other: Cachectic, lying in bed in the left some if all position, acutely ill-appearing HENMT: Other: Mucous membranes are markedly dry, edentulous upper and lower jaw, large yellow mucus plug sitting on the tongue and is also adherent to the roof of the mouth, head is normocephalic atraumatic, noted temporal wasting and sunken cheeks Eyes: Other: Pupils are equal and reactive, evidence of prior lens replacement bilaterally Neck: Other: No JVD, no lymphadenopathy, trachea midline Chest: Other: No crepitus, equal expansion Resp: Other: Expiratory wheezing bilaterally, no tachypnea, no accessory muscle use Cardio: Other: Regular rate, regular rhythm, 2+ bilateral radial pulses, weakly palpable pedal pulses GI: Other: Concave, cachectic, no organomegaly, patient grimaces with palpation, normoactive bowel sounds : Other: Incontinent of urine Skin: Other: Poor skin turgor, no subcutaneous fat, marked pallor Neuro: Other: Alert oriented only to name, this is presumed as the patient does respond to her 1st name but cannot provide other details, no facial asymmetry, garbled incoherent speech with random word choice, is not following commands Extrem: Other: Generalized muscle wasting, arthritic changes noted to large joints, no edema Psych: Other: Confused only minimally or occasionally cooperative at times she has hitting at staff, poor judgment and insight, no decision making capacity Objective Data Vital Signs Vital Signs: Vital Signs - 24 hr 07/24/23 22:30 07/24/23 23:00 07/25/23 02:13 Temperature 98.4 F Pulse Rate 101 H 102 H Respiratory Rate 16 18 Blood Pressure 123/85 Pulse Oximetry 92 Oxygen Delivery Room Air 07/25/23 02:14 07/25/23 03:20 07/25/23 00:00 Temperature Pulse Rate 103 H 90 Respiratory Rate 18 Blood Pressure Pulse Oximetry 94 Ox
--- NOTE | 2023-07-25 13:40 | PCSTNOTE ---
Modified barium swallow study completed. Cursory oral peripheral examination results within functional limits. Trials of thin liquid and mildly thickened liquid by spoon were given. Severe aspiration was observed with both consistencies. Patient was unable to follow instructions to do multiple swallows or clear throat. Evaluation was stopped due to high risk of further aspiration. At this time recommendation for this patient is NPO. Thank you for the referral of this patient.
[2023-07-25] MEDS: KCL 40 MEQ/0.9% SOD CHL 1,000 ML 100 ML IV CONT (14:15)
--- NOTE | 2023-07-25 15:20 | PCDIET ---
Pt completed speech evaluation and failed MBS. Should pt be placed on a tube feeding. Recommendation: Jevity 1.5 @ 40ml/hr to provide 1320kcals, 56g protein, 668ml free water over 22 hrs. Recommend a 100ml flush q 4 hrs.
--- NOTE | 2023-07-25 17:50 | PC.NURSE ---
This patient, Charisma Myles, was transferred to [facility] on 07/25/23 at 1745. Personal belongings sent with patient. Report given to KATIA Powers. Appropriate documentation sent with patient. Daughter, Mary, updated via telephone on patient transfer and condition.
--- NOTE | 2023-07-25 18:04 | PC.NURSE ---
Daughter,Mary, stated hearing aids at home.
[2023-07-25] MEDS: amLODIPine BESYLATE 5 MG TABLET PO (21:12)
[2023-07-26] VITALS (13 sets, daily range): BP systolic 157–190; BP diastolic 62–90; PULSE 80–107; RESP 14–36; TEMP 35.9–36.5; O2SAT 90–96
[2023-07-26] MEDS: metroNIDAZOLE 500 MG/ISO 100ML 500 MG/100 ML BAG 100 MG IVPB ×4 (02:24→20:33)
[2023-07-26] MEDS: KCL 40 MEQ/0.9% SOD CHL 1,000 ML 100 ML IV CONT ×2 (02:32→14:48)
[2023-07-26] MEDS: ALBUTEROL SULFATE NEB 2.5 MG/3 ML INH 5 MG INHALATION ×3 (04:49→20:05)
[2023-07-26] MEDS: IPRATROPIUM BR 0.02% INH SOLN 0.5 MG/2.5 ML VIAL INHALATION ×4 (04:49→20:05)
[2023-07-26] MEDS: AZITHROMYCIN 500 MG/NS 250 ML 500 MG/250 ML BAG 250 MG IVPB (05:40)
[2023-07-26] MEDS: hydrALAZINE HCL 20 MG/ML VIAL 10 MG IV PUSH ×2 (06:24→22:10)
[2023-07-26 06:54] LABS: Basophils Percent Auto 0.3 % (0.2-1.2); Eosinophils Percent Auto 0.1 % (0-4.4); Immature Granulocyte Absolute 0.05 K/mm3 (0.00-0.031); Immature Granulocyte Percent A 0.6 % (0-0.5); Lymphocytes Absolute Auto 0.51 K/mm3 (0.9-3.2); Lymphocytes Percent Auto 5.9 % (18.3-44.2); Mean Corpuscular Hemoglobin 30.8 pg (26-34); Mean Corpuscular Volume 96.2 fl (80-100); Mean Platelet Volume 9.8 fl (7.4-10.4); Monocytes Absolute Auto 0.5 K/mm3 (0.1-0.6); Monocytes Percent Auto 5.9 % (2.6-8.5); Neutrophils Absolute Auto 7.5 K/mm3 (1.3-6.7); Neutrophils Percent Auto 87.2 % (45.5-73.1); Platelet Count Result 190 k/mm3 (150-375); Red Cell Distribution Width 14.2 % (11.5-14.5); White Blood Count 8.6 K/mm3 (4.5-10.0)
--- NOTE | 2023-07-26 08:27 | PM.PNCARD ---
Progress Note: A&P Assessment and Plan (1) Elevated troponin: Code(s): R77.8 - Other specified abnormalities of plasma proteins Status: Acute Assessment and Plan: Flat and peaked at 1.8. This is probably related to pneumonia with CKD. 07/25/23 Echo: EF 65-70%, diastolic dysfunction (E/e '17), severe MAC, raj TR. Continue aspirin. (2) Hypertension: Code(s): I10 - Essential (primary) hypertension Status: Acute Assessment and Plan: High. Started Metoprolol Succinate 25 mg daily, Amlodipine 5 mg daily and Losartan 25 mg daily. (3) Pneumonia: Qualifiers: Pneumonia type: due to unspecified organism Laterality: left Lung location: lower lobe of lung Qualified Code(s): J18.9 - Pneumonia, unspecified organism Code(s): J18.9 - Pneumonia, unspecified organism Status: Acute Assessment and Plan: On antibiotics as per hospitalist. (4) Hypomagnesemia: Code(s): E83.42 - Hypomagnesemia Status: Acute Assessment and Plan: Replete levels. (5) Hypokalemia: Code(s): E87.6 - Hypokalemia Status: Acute Assessment and Plan: Replete levels. (6) Coronary artery disease: Code(s): I25.10 - Atherosclerotic heart disease of [place] coronary artery without angina pectoris Status: Acute Assessment and Plan: Stable. Subjective Date/time seen: 07/26/23 08:27 Interval history: Denies chest pain or sob. She is alert and oriented to name only this morning. Exam Const: General: cooperative, healthy appearing and comfortable Resp: Auscultation: clear to auscultation bilaterally, no crackles, no rales, no rhonchi and no wheezes Cardio: Rate: regular rate Rhythm: regular rhythm Heart sounds: no murmurs Peripheral pulses: dorsalis pedis present Extrem: Right lower extremity: no edema Left lower extremity: no edema Objective Data Vital Signs Vital Signs: Vital Signs - 24 hr 07/25/23 08:43 07/25/23 10:52 07/25/23 10:00 Temperature Pulse Rate 91 86 89 Respiratory Rate 18 Blood Pressure Pulse Oximetry Oxygen Delivery 07/25/23 12:00 07/25/23 14:02 07/25/23 14:18 Temperature 98.9 F Pulse Rate 86 92 88 Respiratory Rate 14 20 20 Blood Pressure 151/67 H Pulse Oximetry 95 Oxygen Delivery 07/25/23 16:00 07/25/23 20:00 07/25/23 22:00 Temperature 99.6 F 97.6 F Pulse Rate 90 90 83 Respiratory Rate 16 16 16 Blood Pressure 148/79 H 162/86 H Pulse Oximetry 100 100 95 Oxygen Delivery Room Air 07/26/23 00:59 07/26/23 04:49 07/26/23 04:58 Temperature 96.6 F L Pulse Rate 81 82 80 Respiratory Rate 16 16 16 Blood Pressure 157/72 H Pulse Oximetry 94 Oxygen Delivery 07/26/23 05:48 07/26/23 08:07 07/26/23 08:11 Temperature 97.1 F L Pulse Rate 89 89 89 Respiratory Rate 14 16 18 Blood Pressure 180/72 H Pulse Oximetry 95 93 Oxygen Delivery Room Air Intake/Output Intake/Output: Intake & Output 07/23/23 07/24/23 07/25/23 07/26/23 23:59 23:59 23:59 23:59 Intake Total 1730 1100 Output Total 375 Balance 1355 1100 Meds/Results Medications: Active Medications Generic Name Dose Route Start Last Admin Trade Name Freq PRN Reason Stop Dose Admin Acetaminophen 650 mg 07/24/23 22:37 Acetaminophen 325 Mg Tablet PO Q4H PRN Mild Pain (1-3) or Fever Albuterol 5 mg 07/25/23 02:00 07/26/23 07:40 Albuterol Sulfate Neb 2.5 Mg/3 Ml Inh INHALATION Not Given Q6HRT [facility] Amlodipine Besylate 5 mg 07/25/23 20:45 07/26/23 07:41 Amlodipine Besylate 5 Mg Tablet PO Not Given QAM [facility] Aspirin 81 mg 07/25/23 08:00 07/26/23 07:41 Aspirin 81 Mg Chewable Tablet PO Not Given DAILY@0800 [facility] Hydralazine HCl 10 mg 07/26/23 06:05 07/26/23 06:24 Hydralazine Hcl 20 Mg/Ml Vial IV PUSH 10 mg Q4H PRN Administration SBP greater than 170 Metronidazole 500 mg in 100 mls @ 100 mls/hr 07/25/23 02:00
--- NOTE | 2023-07-26 10:15 | PM.IMPN ---
Progress Note: A&P Assessment and Plan (1) Pneumonia: Qualifiers: Pneumonia type: due to unspecified organism Laterality: left Lung location: lower lobe of lung Qualified Code(s): J18.9 - Pneumonia, unspecified organism Code(s): J18.9 - Pneumonia, unspecified organism Status: Acute Assessment and Plan: patient may have aspiration pneumonia. Continue Rocephin and Flagyl. Discontinue azithromycin. she is allergic to penicillin. will check urine Legionella and pneumococcal antigen. Blood cultures and urine cultures are pending. Patient had a modified barium swallow and she failed it. Keep NPO. Discussed PEG tube versus hospice with family (2) Acute kidney injury superimposed on chronic kidney disease: Code(s): N17.9 - Acute kidney failure, unspecified; N18.9 - Chronic kidney disease, unspecified Status: Acute Assessment and Plan: Continue IV fluids. Monitor BMP (3) Senile dementia with delirium: Code(s): F03.92 - Unspecified dementia, unspecified severity, with psychotic disturbance Status: Acute (4) Acute non-ST elevation myocardial infarction (NSTEMI): Code(s): I21.4 - Non-ST elevation (NSTEMI) myocardial infarction Status: Acute Assessment and Plan: Patient does have troponin elevation. I suspect this is due to demand ischemia from the patient's pneumonia and complicated in the setting of acute on chronic kidney injury. Cardiology consulted. echo obtained. No wall motion abnormality. Discontinue heparin drip (5) COPD (chronic obstructive pulmonary disease): Qualifiers: COPD type: COPD with acute lower respiratory infection Qualified Code(s): J44.0 - Chronic obstructive pulmonary disease with (acute) lower respiratory infection Code(s): J44.9 - Chronic obstructive pulmonary disease, unspecified Status: Acute Subjective Date/time seen: 07/26/23 10:15 Interval history: Patient is confused Review of Systems Review of Systems: ROS unobtainable: Yes unobtainable due to medical condition (Dementia) Exam Narrative: Weight 30 kg BMI 11.4 Const: Other: Cachectic, lying in bed HENMT: Other: Mucous membranes are markedly dry, edentulous upper and lower jaw, large yellow mucus plug sitting on the tongue and is also adherent to the roof of the mouth, head is normocephalic atraumatic, noted temporal wasting and sunken cheeks Eyes: Other: Pupils are equal and reactive, evidence of prior lens replacement bilaterally Neck: Other: No JVD, no lymphadenopathy, trachea midline Chest: Other: No crepitus, equal expansion Resp: Other: Expiratory wheezing bilaterally, no tachypnea, no accessory muscle use Cardio: Other: Regular rate, regular rhythm, 2+ bilateral radial pulses, weakly palpable pedal pulses GI: Other: Concave, cachectic, no organomegaly, patient grimaces with palpation, normoactive bowel sounds : Other: Incontinent of urine Skin: Other: Poor skin turgor, no subcutaneous fat, marked pallor Neuro: Other: Alert oriented only to name, this is presumed as the patient does respond to her 1st name but cannot provide other details, no facial asymmetry, garbled incoherent speech with random word choice, is not following commands Extrem: Other: Generalized muscle wasting, arthritic changes noted to large joints, no edema Psych: Other: Confused only minimally or occasionally cooperative at times she has hitting at staff, poor judgment and insight, no decision making capacity Objective Data Vital Signs Vital Signs: Vital Signs - 24 hr 07/25/23 10:52 07/25/23 12:00 07/25/23 14:02 Temperature 98.9 F Pulse Rate 86 86 92 Respiratory Rate 14 20 Blood Pressure 151/67 H Pulse Oximetry 95 Oxygen Delivery 07/25/23 14:18 07/25/23 16:00 07/25/23 20:00 Temperature 99.6 F Pulse Rate 88 90 90 Respira
[2023-07-27] VITALS (13 sets, daily range): BP systolic 90–160; BP diastolic 50–92; PULSE 70–160; RESP 16–40; TEMP 36.3–36.7; O2SAT 81–96
[2023-07-27] MEDS: metroNIDAZOLE 500 MG/ISO 100ML 500 MG/100 ML BAG 100 MG IVPB ×2 (01:24→08:32)
[2023-07-27] MEDS: ALBUTEROL SULFATE NEB 2.5 MG/3 ML INH 5 MG INHALATION ×3 (01:26→13:57)
[2023-07-27] MEDS: IPRATROPIUM BR 0.02% INH SOLN 0.5 MG/2.5 ML VIAL INHALATION ×3 (01:26→13:57)
[2023-07-27] MEDS: KCL 40 MEQ/0.9% SOD CHL 1,000 ML 100 ML IV CONT (03:53)
--- NOTE | 2023-07-27 07:47 | PM.PNCARD ---
Progress Note: A&P Assessment and Plan (1) Elevated troponin: Code(s): R77.8 - Other specified abnormalities of plasma proteins Status: Acute Assessment and Plan: Flat and peaked at 1.8. This is probably related to pneumonia with CKD. 07/25/23 Echo: EF 65-70%, diastolic dysfunction (E/e '17), severe MAC, raj TR. Continue aspirin. (2) Hypertension: Code(s): I10 - Essential (primary) hypertension Status: Acute Assessment and Plan: High. Started Metoprolol Succinate 25 mg daily, Amlodipine 5 mg daily and Losartan 25 mg daily. However, PO meds on hold due to aspiration. Hydralazine 10 mg IV prn every 4 hours for SBP>160 mmHg. Enalapril 1.25 mg IV prn every 6 hours for SBP>160 mmHg. (3) Pneumonia: Qualifiers: Pneumonia type: due to unspecified organism Laterality: left Lung location: lower lobe of lung Qualified Code(s): J18.9 - Pneumonia, unspecified organism Code(s): J18.9 - Pneumonia, unspecified organism Status: Acute Assessment and Plan: On antibiotics as per hospitalist. (4) Hypomagnesemia: Code(s): E83.42 - Hypomagnesemia Status: Acute Assessment and Plan: Replete levels. (5) Hypokalemia: Code(s): E87.6 - Hypokalemia Status: Acute Assessment and Plan: Replete levels. (6) Coronary artery disease: Code(s): I25.10 - Atherosclerotic heart disease of [place] coronary artery without angina pectoris Status: Acute Assessment and Plan: Stable. Subjective Date/time seen: 07/27/23 07:47 Interval history: Denies chest pain or sob. She is alert and oriented to name only this morning. She appears to be anxious this morning. Exam Const: General: cooperative, alert and anxious Resp: Auscultation: clear to auscultation bilaterally, no crackles, no rales, no rhonchi and no wheezes Cardio: Rate: regular rate Rhythm: regular rhythm Heart sounds: no murmurs Peripheral pulses: dorsalis pedis present Extrem: Right lower extremity: no edema Left lower extremity: no edema Objective Data Vital Signs Vital Signs: Vital Signs - 24 hr 07/26/23 08:07 07/26/23 08:11 07/26/23 08:33 Temperature Pulse Rate 89 89 Respiratory Rate 16 18 16 Blood Pressure Pulse Oximetry 93 Oxygen Delivery Room Air 07/26/23 08:20 07/26/23 14:00 07/26/23 14:28 Temperature 97.7 F Pulse Rate 92 Respiratory Rate 22 H 16 Blood Pressure 184/62 H Pulse Oximetry 96 Oxygen Delivery Room Air 07/26/23 14:46 07/26/23 20:07 07/26/23 20:17 Temperature Pulse Rate 93 102 H 93 Respiratory Rate 16 16 16 Blood Pressure Pulse Oximetry Oxygen Delivery 07/26/23 20:00 07/26/23 22:00 07/27/23 01:30 Temperature 97.1 F L Pulse Rate 107 H 110 H Respiratory Rate 36 H 16 Blood Pressure 190/90 H Pulse Oximetry 90 Oxygen Delivery Room Air 07/27/23 01:43 07/27/23 06:00 Temperature 98.1 F Pulse Rate 113 H 70 Respiratory Rate 16 24 H Blood Pressure 109/72 Pulse Oximetry 92 Oxygen Delivery Intake/Output Intake/Output: Intake & Output 07/24/23 07/25/23 07/26/23 07/27/23 23:59 23:59 23:59 23:59 Intake Total 1730 2250 1150 Output Total 375 Balance 1355 2250 1150 Meds/Results Medications: Active Medications Generic Name Dose Route Start Last Admin Trade Name Freq PRN Reason Stop Dose Admin Acetaminophen 650 mg 07/24/23 22:37 Acetaminophen 325 Mg Tablet PO Q4H PRN Mild Pain (1-3) or Fever Albuterol 5 mg 07/25/23 02:00 07/27/23 01:26 Albuterol Sulfate Neb 2.5 Mg/3 Ml Inh INHALATION 5 mg Q6HRT JOSE Administration Amlodipine Besylate 5 mg 07/25/23 20:45 07/26/23 07:41 Amlodipine Besylate 5 Mg Tablet PO Not Given QAM [facility] Aspirin 81 mg 07/25/23 08:00 07/26/23 07:41 Aspirin 81 Mg Chewable Tablet PO Not Given DAILY@0800 [facility] Hydralazine HCl 10 mg 07/27/23 07:08 Hydralazine Hcl 20 Mg/Ml Vial
--- NOTE | 2023-07-27 11:09 | PM.IMPN ---
Progress Note: A&P Assessment and Plan (1) Pneumonia: Qualifiers: Pneumonia type: due to unspecified organism Laterality: left Lung location: lower lobe of lung Qualified Code(s): J18.9 - Pneumonia, unspecified organism Code(s): J18.9 - Pneumonia, unspecified organism Status: Acute Assessment and Plan: patient may have aspiration pneumonia. Continue Rocephin and Flagyl. Discontinue azithromycin. she is allergic to penicillin. check urine Legionella and pneumococcal antigen. Blood cultures and urine cultures are pending. Patient had a modified barium swallow and she failed it. Keep NPO. Discussed PEG tube versus hospice with family. Family wants a PEG tube. Will consult GI (2) Acute kidney injury superimposed on chronic kidney disease: Code(s): N17.9 - Acute kidney failure, unspecified; N18.9 - Chronic kidney disease, unspecified Status: Acute Assessment and Plan: Continue IV fluids. Monitor BMP (3) Senile dementia with delirium: Code(s): F03.92 - Unspecified dementia, unspecified severity, with psychotic disturbance Status: Acute (4) Acute non-ST elevation myocardial infarction (NSTEMI): Code(s): I21.4 - Non-ST elevation (NSTEMI) myocardial infarction Status: Acute Assessment and Plan: Patient does have troponin elevation. I suspect this is due to demand ischemia from the patient's pneumonia and complicated in the setting of acute on chronic kidney injury. Cardiology consulted. echo obtained. No wall motion abnormality. Discontinue heparin drip (5) COPD (chronic obstructive pulmonary disease): Qualifiers: COPD type: COPD with acute lower respiratory infection Qualified Code(s): J44.0 - Chronic obstructive pulmonary disease with (acute) lower respiratory infection Code(s): J44.9 - Chronic obstructive pulmonary disease, unspecified Status: Acute Subjective Date/time seen: 07/27/23 11:09 Interval history: Patient confused Review of Systems Review of Systems: ROS unobtainable: Yes unobtainable due to medical condition (Dementia) Exam Narrative: Weight 30 kg BMI 11.4 Const: Other: Cachectic, lying in bed HENMT: Other: Mucous membranes are markedly dry, edentulous upper and lower jaw, large yellow mucus plug sitting on the tongue and is also adherent to the roof of the mouth, head is normocephalic atraumatic, noted temporal wasting and sunken cheeks Eyes: Other: Pupils are equal and reactive, evidence of prior lens replacement bilaterally Neck: Other: No JVD, no lymphadenopathy, trachea midline Chest: Other: No crepitus, equal expansion Resp: Other: Expiratory wheezing bilaterally, no tachypnea, no accessory muscle use Cardio: Other: Regular rate, regular rhythm, 2+ bilateral radial pulses, weakly palpable pedal pulses GI: Other: Concave, cachectic, no organomegaly, patient grimaces with palpation, normoactive bowel sounds : Other: Incontinent of urine Skin: Other: Poor skin turgor, no subcutaneous fat, marked pallor Neuro: Other: Alert oriented only to name, this is presumed as the patient does respond to her 1st name but cannot provide other details, no facial asymmetry, garbled incoherent speech with random word choice, is not following commands Extrem: Other: Generalized muscle wasting, arthritic changes noted to large joints, no edema Psych: Other: Confused only minimally or occasionally cooperative at times she has hitting at staff, poor judgment and insight, no decision making capacity Objective Data Vital Signs Vital Signs: Vital Signs - 24 hr 07/26/23 14:00 07/26/23 14:28 07/26/23 14:46 Temperature 97.7 F Pulse Rate 92 93 Respiratory Rate 22 H 16 16 Blood Pressure 184/62 H Pulse Oximetry 96 Oxygen Delivery 07/26/23 20:07 07/26/23 20:17 07/26/23 20:00 Temperature
[2023-07-27 11:22] LABS: Hematocrit 31.2 % (37.0-47.0); Hemoglobin 9.5 g/dL (12.0-15.0); Mean Corpuscular HGB Conc 30.4 g/dl (32-36); Mean Corpuscular Hemoglobin 30.4 pg (26-34); Mean Corpuscular Volume 99.7 fl (80-100); Mean Platelet Volume 10.1 fl (7.4-10.4); Platelet Count Result 281 k/mm3 (150-375); Red Blood Count 3.13 M/mm3 (4.2-5.4); Red Cell Distribution Width 14.8 % (11.5-14.5); White Blood Count 12.8 K/mm3 (4.5-10.0)
[2023-07-27 11:38] LABS: Anion Gap 18 mmol/L (8-16); Blood Urea Nitrogen 25 mg/dL (7-17); Calcium 8.3 mg/dL (8.4-10.2); Carbon Dioxide 14 mmol/L (22-30); Chloride 112 mmol/L (98-107); Estimated CRCL calculation 15 ml/min; Estimated Glomerular Filt Rate 36; Glucose 74 mg/dL (65-110); Potassium 5.2 mmol/L (3.4-5.0); Sodium 144 mmol/L (137-145)
--- NOTE | 2023-07-27 13:23 | WPDGICN ---
Assessment and Plan Assessment and plan (1) Severe protein-calorie malnutrition: Code(s): E43 - Unspecified severe protein-calorie malnutrition Status: Acute Assessment and Plan: admitted with aspiration pneumonia, failure to thrive and malnutrition family not longer want to get PEG placement now will continue with comfort care (2) Pneumonia: Qualifiers: Pneumonia type: due to unspecified organism Laterality: left Lung location: lower lobe of lung Qualified Code(s): J18.9 - Pneumonia, unspecified organism Code(s): J18.9 - Pneumonia, unspecified organism Status: Acute Assessment and Plan: on treatment (3) Acute non-ST elevation myocardial infarction (NSTEMI): Code(s): I21.4 - Non-ST elevation (NSTEMI) myocardial infarction Status: Acute Assessment and Plan: medical treatment (4) Senile dementia with delirium: Code(s): F03.92 - Unspecified dementia, unspecified severity, with psychotic disturbance Status: Acute Assessment and Plan: needs full care (5) Dysphagia: Qualifiers: Dysphagia type: unspecified Qualified Code(s): R13.10 - Dysphagia, unspecified Code(s): R13.10 - Dysphagia, unspecified Status: Acute GI Consult Note Consult date/time: 07/27/23 13:23 Reason for consult: dementia, aspiration pneumonia, evaluation for possible G-tube HPI: Charisma Myles is a 82 year old female with history of coronary artery disease with prior stents, dementia that requires help, chronic kidney disease stage 3, atrial fibrillation and COPD who initially was admitted few days ago after she presented to the ER at [facility] due to increased confusion from baseline.?Information from records and her daughter who is at bedside. She was diagnosed with aspiration pneumonia started on antibiotics, also nstemi after had elevated troponin and evaluated by cardiology, acute on ckd. Chest x-ray and CT scan from outside facility were both reviewed.? 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 Chronic kidney disease, stage 3b COPD (chronic obstructive pulmonary disease) Coronary artery disease Dementia DVT (deep venous thrombosis) Dysphagia Essential hypertension GERD (gastroesophageal reflux disease) Osteoporosis Tonsillar cancer Surgical History Surgical History Gastrojejunostomy tube status With subsequent removal H/O bilateral oophorectomy History of appendectomy History of hysterectomy History of stress incontinence procedure using tension free vaginal tape Status post cataract extraction of both eyes with insertion of intraocular lens Stented coronary artery Family History Family History Grandparent Congestive heart failure Sibling Hx of CABG Father Alzheimer's dementia Parkinson disease Mother Heart disease Social History Social History (Updated 07/25/23 @ 01:42 by Roxane Garcia DO) Social History: The patient lives at home with her daughter. She is a former smoker. Daughter denies the patient having history of alcohol or drug use. 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 Code status: DNR/DNI Healthcare power of corporate associate attorney: Daughter Smoking packs per day: 1 Smoking cigarettes per day: 20.0 Years smoked: 50 Smoking pack-years: 50.00 Smoking status: Former smoker Tobacco type: cigarettes Second hand tobacco smoke exposure: No Smoking end date: 05/23/04 Alcohol intake: former Substance
[2023-07-27] MEDS: LORazepam INJ (*CRX) 2 MG/ML VIAL 1 MG IV PUSH (20:49)
--- NOTE | 2023-07-27 23:11 | PC.NURSE ---
Miguel called to nurses station at [id number] to report that patient is not breathing. Upon assessment, no breath sounds or heart beat auscultated. Charge Nurse Maisha Palacio called to room for 2nd RN verification. TOD [id number]
--- NOTE | 2023-07-28 12:22 | PM.DDS ---
Discharge Summary Date and Time Date of : 07/27/23 Time of : 22:55 Provider Pronounced By: Maylin Palacio RN/Don Kaminski RN Probable Cause of Probable Cause of : acute hypoxic resp. failure Summary Hospital Course: 82-year-old female with a past medical history of coronary artery disease with prior stents, dementia, GERD, chronic kidney disease stage 3, atrial fibrillation and COPD among other comorbidities who presented to the ER at [facility] due to increased confusion from baseline. she was started on Abx for UTI. patient was eventually made comfort care per family wishes. she on 07/27/23 Additional Data Confirmation of as documented by pronouncing clinician: Pupillary Reflex, Palpable Pulses, Response to Stimuli, Heart Tones and Breath Sounds Name of Provider Notified: Jose Time Provider Notified: 22:57 Wreath Machine Operator Notified: Yes Date [facility] Notified of : 07/27/23 Time [facility] Notified of : 23:09
[2023-07-28 15:43] LABS: Pneumococcal Antigen Urine Not Detected (Not Detected)
[2023-07-29 02:35] LABS: Legionella pneumophila Ag Ur Not Detected (Not Detected)
== END 2023-07-27 22:55 | disposition expired | DRG 177 ==
LOC: ANHIMU 07-25 09:04 → ANH3MEDSUR 07-25 18:04
PROVIDERS: Internal Medicine Cardiovascular Disease; Admitting Provider Internal Medicine; PCP Internal Medicine; Visit Provider Hospitalist
DX: J69.0 Pneumonitis due to inhalation of food and vomit (principal); E43 Unspecified severe protein-calorie malnutrition; I21.A1 Myocardial infarction type 2; I48.20 Chronic atrial fibrillation, unspecified; R64 Cachexia; Z68.1 Body mass index [BMI] 19.9 or less, adult; N17.9 Acute kidney failure, unspecified; E87.0 Hyperosmolality and hypernatremia; F03.92 Unspecified dementia, unspecified severity, with psychotic disturbance; I25.10 Atherosclerotic heart disease of native coronary artery without angina pectoris; I12.9 Hypertensive chronic kidney disease with stage 1 through stage 4 chronic kidney disease, or unspecified chronic kidney disease; N18.30 Chronic kidney disease, stage 3 unspecified; E87.6 Hypokalemia; E83.42 Hypomagnesemia; J44.9 Chronic obstructive pulmonary disease, unspecified; K21.9 Gastro-esophageal reflux disease without esophagitis; M81.0 Age-related osteoporosis without current pathological fracture; Z66 Do not resuscitate; Z85.818 Personal history of malignant neoplasm of other sites of lip, oral cavity, and pharynx; Z95.5 Presence of coronary angioplasty implant and graft; Z86.718 Personal history of other venous thrombosis and embolism
CPT/HCPCS: 36415; 80048; 80053; 80061; 83605; 83735; 84100; 84443; 84484; 85025; 85027; 85730; 87449; 87899; 92611; 93005; 93306; 94640; A9270; J0360; J0456; J0696; J1644; J1836; J2060; J3475; J7030